=== PATIENT | female | born 1950 | race Caucasian/White ===

== ENCOUNTER 2017-12-22 00:48 | Inpatient (IN) | payer OTHER ==
[~2017-12-22] VITALS: Ht 161.9 cm; Wt 86.3 kg
[2017-12-22 02:06] LABS: BILIRUBIN TOTAL 0.41 mg/dL (0.20-1.00); CALCIUM 9.5 mg/dL (8.5-10.1); CARBON DIOXIDE 27.6 mmol/L (21-32); CREATININE SERUM 1.4 mg/dL (0.6-1.0); TOTAL PROTEIN, SERUM 8.2 g/dL (6.4-8.2)
[2017-12-22 02:07] LABS: ALBUMIN 3.3 g/dL (3.4-5.0)
[2017-12-22 02:10] LABS: POTASSIUM SERUM 2.7 mmol/L (3.5-5.1)
[2017-12-22 02:32] LABS: BASOPHIL % 0.4 % (0-2); PLATELET COUNT 318 x10^3mcL (130-400); RED CELL DISTRIBUTION WIDTH 14.2 % (11.5-14.5)
[2017-12-22] MEDS ORDERED: METOPROLOL TART50 MG PO (05:23)
[2017-12-22] MEDS ORDERED: PLA75 PO (05:23)
[2017-12-22] MEDS ORDERED: ZOCOR20 MG PO (05:23)
[2017-12-22] MEDS ORDERED: HYDRALAZINE HCL25 MG PO (05:24)
[2017-12-22] MEDS ORDERED: LEVOTHYROXIN0.125 M2 PO (05:24)
[2017-12-22] MEDS ORDERED: COZAAR50 M1 PO (05:24)
[2017-12-22] MEDS ORDERED: BAYER ASPIRIN C81 MG PO (05:25)
[2017-12-22 05:26] VITALS: BP 141/69
[2017-12-22 09:27] VITALS: BP 110/62
[2017-12-22 13:54] VITALS: BP 116/67
[2017-12-22 16:35] VITALS: BP 128/68
[2017-12-22 21:22] VITALS: BP 148/65
[2017-12-22 21:51] VITALS: Ht 161.9 cm; Wt 86.3 kg
[2017-12-23 05:55] VITALS: BP 141/80
[2017-12-23 06:32] LABS: BASOPHIL % 0.4 % (0-2); PLATELET COUNT 306 x10^3mcL (130-400); RED CELL DISTRIBUTION WIDTH 14.4 % (11.5-14.5)
[2017-12-23 06:40] LABS: CALCIUM 8.9 mg/dL (8.5-10.1); CARBON DIOXIDE 28.9 mmol/L (21-32); CREATININE SERUM 1.2 mg/dL (0.6-1.0); POTASSIUM SERUM 4.4 mmol/L (3.5-5.1)
[2017-12-23 08:58] VITALS: BP 141/71
[2017-12-23 17:14] VITALS: BP 121/76
[2017-12-23 20:40] VITALS: BP 153/75
[2017-12-24 05:29] VITALS: BP 146/81
[2017-12-24 06:14] LABS: CALCIUM 8.9 mg/dL (8.5-10.1); CARBON DIOXIDE 25.5 mmol/L (21-32); CREATININE SERUM 1.1 mg/dL (0.6-1.0)
[2017-12-24 06:18] LABS: BASOPHIL % 0.3 % (0-2); PLATELET COUNT 355 x10^3mcL (130-400)
[2017-12-24 09:36] VITALS: BP 140/77
[2017-12-24 14:17] VITALS: BP 141/72
[2017-12-24 17:38] VITALS: BP 147/66
[2017-12-24 21:14] VITALS: BP 123/81
[2017-12-25 05:57] VITALS: BP 133/72
[2017-12-25 09:39] VITALS: BP 119/59
[2017-12-25 17:52] VITALS: BP 138/84
[2017-12-25 20:53] VITALS: BP 141/83
[2017-12-26 05:13] VITALS: BP 147/84
[2017-12-26 08:58] VITALS: BP 142/62
[2017-12-26 13:15] VITALS: BP 122/77
[2017-12-26 15:51] VITALS: BP 122/77
[2017-12-26 17:23] VITALS: BP 134/73
== END 2017-12-26 18:05 | disposition home health service (06) | DRG 872 ==
LOC: ED 00:48 → MU 04:16
PROVIDERS: Emergency Medicine; Internal Medicine
DX: A41.9 Sepsis, unspecified organism (principal); K57.32 Diverticulitis of large intestine without perforation or abscess without bleeding; E87.2 Acidosis; E87.6 Hypokalemia; E86.0 Dehydration; K59.00 Constipation, unspecified; T40.2X5A Adverse effect of other opioids, initial encounter; I10 Essential (primary) hypertension; I25.10 Atherosclerotic heart disease of native coronary artery without angina pectoris; K59.03 Drug induced constipation; G43.909 Migraine, unspecified, not intractable, without status migrainosus; I25.2 Old myocardial infarction; Z68.31 Body mass index [BMI] 31.0-31.9, adult; Z95.5 Presence of coronary angioplasty implant and graft; Z86.010 Personal history of colon polyps; Z79.02 Long term (current) use of antithrombotics/antiplatelets; Z79.82 Long term (current) use of aspirin; Y92.009 Unspecified place in unspecified non-institutional (private) residence as the place of occurrence of the external cause
CPT/HCPCS: 83880; J1170; J1956; J2270; J2405; J3490; J7030; Q0092

== ENCOUNTER 2018-02-24 09:14 | Inpatient (IN) | payer OTHER ==
[~2018-02-24] VITALS: Ht 162.6 cm; Wt 86.9 kg
[~2018-02-24 09:14] MED LIST: AMBIEN10 MG PO; ASPIR 8181 MG PO; BAYER ASPIRIN C81 MG PO; COZAAR50 M1 PO; DICYCLOMINE HCL10 MG PO; DIOVAN HCT1 TA1 PO; DULCOLAX STOOL100 M1 PO; HYDRALAZINE HCL25 MG PO; LEVOTHYROXIN0.125 M2 PO; LOPRESSOR50 M1 PO; METOPROLOL TART50 MG PO; NITROSTAT0.4 MG SL; PLA75 PO; RANITIDINE HCL150 M1 PO; ULTRAM50 MG PO; ZOCOR20 MG PO; ZOCOR40 MG PO
[2018-02-24 09:20] VITALS: Ht 162.6 cm; Wt 86.9 kg
[2018-02-24 11:06] LABS: PLATELET COUNT 391 x10^3mcL (130-400); RED CELL DISTRIBUTION WIDTH 13.1 % (11.5-14.5)
[2018-02-24 11:07] LABS: CALCIUM 9.3 mg/dL (8.5-10.1); CREATININE SERUM 1.6 mg/dL (0.6-1.0); POTASSIUM SERUM 3.4 mmol/L (3.5-5.1)
[2018-02-24 11:21] LABS: ALBUMIN 3.5 g/dL (3.4-5.0); BILIRUBIN TOTAL 0.35 mg/dL (0.20-1.00); TOTAL PROTEIN, SERUM 7.8 g/dL (6.4-8.2)
[2018-02-24 11:22] LABS: CK-MB 0.6 ng/mL (0-3.6)
[2018-02-24 12:42] LABS: BAND NEUTROPHIL 2 % (0-10); BASOPHIL 0 % (0-2); MONOCYTE 2 % (0-7); SEGMENTED NEUTROPHILS 94 % (37-75); rbc morphology (normal/abnorm) ABNORMAL (NORMAL)
[2018-02-24 12:44] LABS: PLATELET MORPHOLOGY PLATELETS NORMAL
[2018-02-24 13:29] VITALS: BP 152/77
[2018-02-24 17:29] VITALS: BP 114/69
[2018-02-24 21:09] VITALS: BP 148/64
[2018-02-25 04:50] VITALS: BP 106/68
[2018-02-25 06:05] LABS: BASOPHIL % 0.2 % (0-2); PLATELET COUNT 346 x10^3mcL (130-400); RED CELL DISTRIBUTION WIDTH 13.7 % (11.5-14.5)
[2018-02-25 06:30] LABS: CALCIUM 9.6 mg/dL (8.5-10.1); CARBON DIOXIDE 30.7 mmol/L (21-32); CREATININE SERUM 1.4 mg/dL (0.6-1.0)
[2018-02-25 09:00] VITALS: BP 122/74
[2018-02-25 13:05] VITALS: BP 91/59
[2018-02-25 17:04] VITALS: BP 98/52
[2018-02-25 21:23] VITALS: BP 98/55
[2018-02-26 05:49] VITALS: BP 121/68
[2018-02-26 06:41] LABS: BASOPHIL % 0.3 % (0-2); PLATELET COUNT 306 x10^3mcL (130-400); RED CELL DISTRIBUTION WIDTH 13.9 % (11.5-14.5)
[2018-02-26 06:53] LABS: CALCIUM 9.1 mg/dL (8.5-10.1); CREATININE SERUM 1.8 mg/dL (0.6-1.0); POTASSIUM SERUM 3.7 mmol/L (3.5-5.1)
[2018-02-26 07:02] LABS: CHOLESTEROL/HDL RATIO 2.6
[2018-02-26 09:34] VITALS: BP 134/64
[2018-02-26 17:40] VITALS: BP 121/58
[2018-02-26 20:51] VITALS: BP 113/71
[2018-02-27 05:33] VITALS: BP 140/66
[2018-02-27 06:18] LABS: CARBON DIOXIDE 26.2 mmol/L (21-32); CREATININE SERUM 1.2 mg/dL (0.6-1.0); POTASSIUM SERUM 3.9 mmol/L (3.5-5.1)
[2018-02-27 06:20] LABS: BASOPHIL % 0.4 % (0-2); PLATELET COUNT 288 x10^3mcL (130-400)
[2018-02-27 09:22] VITALS: BP 129/67
[2018-02-27 12:40] VITALS: BP 137/79
[2018-02-27 17:07] VITALS: BP 138/54
[2018-02-27 20:42] VITALS: BP 138/91
[2018-02-28 05:18] VITALS: BP 127/72; BP 145/80
[2018-02-28 09:59] VITALS: BP 114/57
[2018-02-28 12:45] VITALS: BP 137/78
[2018-02-28 16:50] VITALS: BP 143/82
[2018-03-01 05:42] VITALS: BP 139/81
[2018-03-01 05:54] VITALS: BP 139/81
[2018-03-01 08:35] VITALS: BP 154/71
[2018-03-01 10:15] VITALS: BP 154/71
== END 2018-03-01 12:58 | disposition home or self-care (01) | DRG 853 ==
LOC: ED 09:14 → DU 11:18
PROVIDERS: Emergency Medicine; Internal Medicine; Neuromusculoskeletal Medicine, Sports Medicine
PROC: 0HQEXZZ Repair Left Lower Arm Skin, External Approach (ICD-10-PCS; 2018-02-24)
PROC: 0PSJ34Z Reposition Left Radius with Internal Fixation Device, Percutaneous Approach (ICD-10-PCS; principal; 2018-02-26 13:00)
DX: A41.9 Sepsis, unspecified organism (principal); S52.502B Unspecified fracture of the lower end of left radius, initial encounter for open fracture type I or II; L03.114 Cellulitis of left upper limb; N17.9 Acute kidney failure, unspecified; S51.852A Open bite of left forearm, initial encounter; B96.89 Other specified bacterial agents as the cause of diseases classified elsewhere; I12.9 Hypertensive chronic kidney disease with stage 1 through stage 4 chronic kidney disease, or unspecified chronic kidney disease; N18.9 Chronic kidney disease, unspecified; I25.10 Atherosclerotic heart disease of native coronary artery without angina pectoris; E11.22 Type 2 diabetes mellitus with diabetic chronic kidney disease; E03.9 Hypothyroidism, unspecified; Z68.30 Body mass index [BMI] 30.0-30.9, adult; Z95.5 Presence of coronary angioplasty implant and graft; Z79.82 Long term (current) use of aspirin; W54.0XXA Bitten by dog, initial encounter; Y92.009 Unspecified place in unspecified non-institutional (private) residence as the place of occurrence of the external cause
CPT/HCPCS: 76001; 83880; C1713; J0696; J0780; J1170; J2175; J2250; J2270; J2543; J2704; J3010; J3490; J7040; J7120; Q0092

== ENCOUNTER 2018-04-01 18:50 | Inpatient (IN) | payer OTHER ==
[~2018-04-01] VITALS: Ht 162.6 cm; Wt 79.4 kg
[2018-04-01 18:59] VITALS: Ht 162.6 cm; Wt 79.4 kg
[2018-04-01 19:51] LABS: BASOPHIL % 0.4 % (0-2); PLATELET COUNT 350 x10^3mcL (130-400); RED CELL DISTRIBUTION WIDTH 14.7 % (11.5-14.5)
[2018-04-01 19:54] LABS: CALCIUM 9.4 mg/dL (8.5-10.1); CARBON DIOXIDE 27.5 mmol/L (21-32); CREATININE SERUM 1.5 mg/dL (0.6-1.0); POTASSIUM SERUM 3.1 mmol/L (3.5-5.1)
[2018-04-01 19:58] LABS: ALBUMIN 4.1 g/dL (3.4-5.0); BILIRUBIN TOTAL 0.5 mg/dL (0.20-1.00); TOTAL PROTEIN, SERUM 8.1 g/dL (6.4-8.2)
[2018-04-01 23:14] LABS: MAGNESIUM 2.7 mg/dL (1.8-2.4)
[2018-04-01 23:18] LABS: CHOLESTEROL/HDL RATIO 3.1
[2018-04-01 23:45] VITALS: BP 132/78
[2018-04-02 00:33] VITALS: BP 132/78
[2018-04-02 05:43] VITALS: BP 106/63
[2018-04-02 06:26] LABS: BASOPHIL % 0.2 % (0-2); PLATELET COUNT 322 x10^3mcL (130-400)
[2018-04-02 06:42] LABS: CALCIUM 8.8 mg/dL (8.5-10.1); CARBON DIOXIDE 26.9 mmol/L (21-32); CREATININE SERUM 1.4 mg/dL (0.6-1.0); POTASSIUM SERUM 3.3 mmol/L (3.5-5.1)
[2018-04-02 06:51] LABS: T4(THYROXINE) 5.1 ug/dL (4.7-13.3)
[2018-04-02 07:57] LABS: microscopic required? NO
[2018-04-02 08:20] LABS: AMPHETAMINE QUAL UR NONE DETECTED (See below)
[2018-04-02 09:29] LABS: urine erythrocyte NEGATIVE (NEGATIVE)
[2018-04-02 09:36] VITALS: BP 106/54
[2018-04-02 11:55] VITALS: BP 106/54
[2018-04-03 15:24] LABS: RAPID PLASMA REAGIN Non Reactive (Non Reactive); RHEUMATOID ARTHRITIS FACTOR 10.2 IU/mL (0.0-13.9)
== END 2018-04-02 13:05 | disposition home or self-care (01) | DRG 312 ==
LOC: ED 18:50 → DU 22:41
PROVIDERS: Emergency Medicine; Internal Medicine
DX: R55 Syncope and collapse (principal); E87.6 Hypokalemia; E86.0 Dehydration; D72.829 Elevated white blood cell count, unspecified; I10 Essential (primary) hypertension; I25.10 Atherosclerotic heart disease of native coronary artery without angina pectoris; J44.9 Chronic obstructive pulmonary disease, unspecified; I25.2 Old myocardial infarction; Z68.29 Body mass index [BMI] 29.0-29.9, adult; Z79.82 Long term (current) use of aspirin; Z79.891 Long term (current) use of opiate analgesic; Z79.1 Long term (current) use of non-steroidal anti-inflammatories (NSAID)
CPT/HCPCS: 86431; J2270; J3490; J7030; J7040; J7620; Q0092; Q9967

== ENCOUNTER 2018-04-02 22:36 | Observation (INO) | payer OTHER ==
[~2018-04-02] VITALS: Ht 162.6 cm; Wt 76.2 kg
[2018-04-02 22:40] VITALS: Ht 162.6 cm; Wt 76.2 kg
[2018-04-02 23:15] LABS: BASOPHIL % 0.4 % (0-2); PLATELET COUNT 294 x10^3mcL (130-400); RED CELL DISTRIBUTION WIDTH 14.5 % (11.5-14.5)
[2018-04-02 23:33] LABS: ALBUMIN 3.4 g/dL (3.4-5.0); BILIRUBIN TOTAL 0.3 mg/dL (0.20-1.00); CALCIUM 8.6 mg/dL (8.5-10.1); CARBON DIOXIDE 26.2 mmol/L (21-32); CREATININE SERUM 1.5 mg/dL (0.6-1.0); POTASSIUM SERUM 3.4 mmol/L (3.5-5.1)
[2018-04-03 03:13] VITALS: BP 153/65
[2018-04-03 04:14] LABS: CHOLESTEROL/HDL RATIO 2.9; MAGNESIUM 2.2 mg/dL (1.8-2.4)
[2018-04-03 05:13] VITALS: BP 148/62
[2018-04-03 05:42] LABS: microscopic required? YES; urine erythrocyte NEGATIVE (NEGATIVE)
[2018-04-03 08:22] VITALS: BP 132/69
[2018-04-03 11:25] VITALS: BP 102/50
[2018-04-03 17:31] VITALS: BP 101/64
[2018-04-03 21:36] VITALS: BP 122/70
[2018-04-04 05:42] VITALS: BP 108/70
[2018-04-04 06:21] LABS: BASOPHIL % 0.5 % (0-2); PLATELET COUNT 271 x10^3mcL (130-400); RED CELL DISTRIBUTION WIDTH 14.5 % (11.5-14.5)
[2018-04-04 06:29] LABS: CALCIUM 8.6 mg/dL (8.5-10.1); CARBON DIOXIDE 22.2 mmol/L (21-32); CREATININE SERUM 1.1 mg/dL (0.6-1.0); POTASSIUM SERUM 3.8 mmol/L (3.5-5.1)
[2018-04-04 10:31] VITALS: BP 113/57
[2018-04-04 15:04] VITALS: BP 139/68
[2018-04-04 17:18] VITALS: BP 116/69
[2018-04-04 21:49] VITALS: BP 112/49
[2018-04-04 21:51] VITALS: BP 115/73
[2018-04-05 05:20] VITALS: BP 118/80
[2018-04-05 08:00] VITALS: BP 103/71
[2018-04-05 09:25] VITALS: BP 114/59
[2018-04-05 13:11] VITALS: BP 114/59
[2018-04-05 13:42] VITALS: BP 128/77
== END 2018-04-05 15:26 | disposition home or self-care (01) | DRG 303 ==
LOC: ED 22:36 → DU 04-03 02:30
PROVIDERS: Emergency Medicine; Internal Medicine
DX: I25.119 Atherosclerotic heart disease of native coronary artery with unspecified angina pectoris (principal); N39.0 Urinary tract infection, site not specified; I13.10 Hypertensive heart and chronic kidney disease without heart failure, with stage 1 through stage 4 chronic kidney disease, or unspecified chronic kidney disease; N18.3 Chronic kidney disease, stage 3 (moderate); J44.9 Chronic obstructive pulmonary disease, unspecified; Z68.30 Body mass index [BMI] 30.0-30.9, adult; Z95.5 Presence of coronary angioplasty implant and graft; Z79.82 Long term (current) use of aspirin
CPT/HCPCS: 83880; A9500; G0378; J2270; J2785; J3490; Q0092

== ENCOUNTER 2018-05-11 14:00 | Inpatient (IN) | payer OTHER ==
[~2018-05-11] VITALS: Ht 162.6 cm; Wt 81.3 kg
[2018-05-11 14:05] VITALS: Ht 162.6 cm; Wt 81.3 kg
[2018-05-11 15:33] LABS: BASOPHIL % 0.4 % (0-2); PLATELET COUNT 314 x10^3mcL (130-400); RED CELL DISTRIBUTION WIDTH 14.6 % (11.5-14.5)
[2018-05-11 15:59] LABS: CALCIUM 9.3 mg/dL (8.5-10.1); CARBON DIOXIDE 26.5 mmol/L (21-32); CREATININE SERUM 1.4 mg/dL (0.6-1.0); POTASSIUM SERUM 3.4 mmol/L (3.5-5.1)
[2018-05-11 16:06] LABS: ALBUMIN 4.1 g/dL (3.4-5.0); BILIRUBIN TOTAL 0.49 mg/dL (0.20-1.00); TOTAL PROTEIN, SERUM 7.9 g/dL (6.4-8.2)
[2018-05-11 16:13] LABS: T3 TOTAL 1.01 ng/mL
[2018-05-11 16:15] LABS: CHOLESTEROL/HDL RATIO 2.9
[2018-05-11 16:27] LABS: FREE THYROXINE INDEX 3.2 ug/dL (1.4-4.5); T4(THYROXINE) 8.6 ug/dL (4.7-13.3)
[2018-05-11 20:24] VITALS: BP 188/95
[2018-05-11] MEDS ORDERED: ASPIR 8181 MG PO (20:42)
[2018-05-11] MEDS ORDERED: PLAVIX75 M1 PO (20:42)
[2018-05-11] MEDS ORDERED: DICYCLOMINE HCL10 MG PO (20:42)
[2018-05-11] MEDS ORDERED: HYDRALAZINE HCL25 MG PO (20:43)
[2018-05-11] MEDS ORDERED: COLACE100 MG PO (20:43)
[2018-05-11] MEDS ORDERED: LEVOTHYROXIN0.125 M2 PO (20:43)
[2018-05-11] MEDS ORDERED: METOPROLOL SUCC50 M2 PO (20:44)
[2018-05-11] MEDS ORDERED: LOSARTAN POTASS50 M1 PO (20:44)
[2018-05-11] MEDS ORDERED: RANITIDINE HCL150 M1 PO (20:45)
[2018-05-11] MEDS ORDERED: ZOCOR20 MG PO (20:45)
[2018-05-11] MEDS ORDERED: DIOVAN HCT1 TA1 PO (20:45)
[2018-05-11 21:01] LABS: UA SPECIFIC GRAVITY >=1.030 (1.005-1.035); microscopic required? YES; urine erythrocyte 2+ (NEGATIVE)
[2018-05-12] VITALS (8 sets, daily range): BP systolic 118–170; BP diastolic 69–102
[2018-05-12 06:04] LABS: BASOPHIL % 0.4 % (0-2); PLATELET COUNT 271 x10^3mcL (130-400)
[2018-05-12 06:45] LABS: RED CELL DISTRIBUTION WIDTH 14.8 % (11.5-14.5)
[2018-05-12 06:46] LABS: CALCIUM 8.6 mg/dL (8.5-10.1); CARBON DIOXIDE 25.6 mmol/L (21-32); CREATININE SERUM 1.4 mg/dL (0.6-1.0); POTASSIUM SERUM 3.4 mmol/L (3.5-5.1)
[2018-05-13 06:16] VITALS: BP 197/84
[2018-05-13 07:02] VITALS: BP 159/73
[2018-05-13 08:58] VITALS: BP 157/81
[2018-05-13 10:00] VITALS: BP 157/81
== END 2018-05-13 14:25 | disposition home health service (06) | DRG 383 ==
LOC: ED 14:00 → DU 19:37
PROVIDERS: Internal Medicine; Internal Medicine Gastroenterology; Specialist
PROC: 0DB68ZX Excision of Stomach, Via Natural or Artificial Opening Endoscopic, Diagnostic (ICD-10-PCS; principal; 2018-05-12 10:30)
DX: K25.9 Gastric ulcer, unspecified as acute or chronic, without hemorrhage or perforation (principal); N17.0 Acute kidney failure with tubular necrosis; F11.20 Opioid dependence, uncomplicated; K26.7 Chronic duodenal ulcer without hemorrhage or perforation; N20.0 Calculus of kidney; E87.6 Hypokalemia; I11.9 Hypertensive heart disease without heart failure; I25.10 Atherosclerotic heart disease of native coronary artery without angina pectoris; F31.9 Bipolar disorder, unspecified; F41.9 Anxiety disorder, unspecified; Z88.5 Allergy status to narcotic agent; Z87.01 Personal history of pneumonia (recurrent); Z95.5 Presence of coronary angioplasty implant and graft; Z79.82 Long term (current) use of aspirin; Z79.02 Long term (current) use of antithrombotics/antiplatelets; G89.29 Other chronic pain; I25.2 Old myocardial infarction; J45.909 Unspecified asthma, uncomplicated; Z68.27 Body mass index [BMI] 27.0-27.9, adult
CPT/HCPCS: 43235; 72072; 78226; 83880; 84439; A9537; C9113; J1200; J1610; J2250; J2270; J2310; J2405; J3010; J3490; J7030; Q0092

== ENCOUNTER 2018-11-21 07:49 | Inpatient (IN) | payer OTHER ==
[~2018-11-21] VITALS: Ht 162.6 cm; Wt 80.9 kg
[~2018-11-21 07:49] MED LIST changes: +COLACE100 MG PO; +LOSARTAN POTASS50 M1 PO; +METOPROLOL SUCC50 M2 PO; +PLAVIX75 M1 PO
[2018-11-21 07:50] VITALS: Ht 162.6 cm; Wt 80.9 kg
--- NOTE | 2018-11-21 08:11 | NUR ---
PT AWAKE AND ALERT. PT C/O SOB AND LLQ PAIN X4 DAYS. PT APPEARS TO BE IN SOME RESPIRATORY DISTRESS WITH DEEP SYMMETRICAL DEEP BREATHS. PT ON FULL CM. VITALS SHOW STA ON THE CM. SP02 WNL ON RA. PT REPORTS HX OF CARDIAC STENTS AND HTN. MSE COMPLETED BY DR MAURICE. CALL LIGHT WITHIN REACH. CTM.
[2018-11-21 08:29] LABS: BASOPHIL % 0.3 % (0-2); PLATELET COUNT 366 x10^3mcL (130-400); RED CELL DISTRIBUTION WIDTH 13.6 % (11.5-14.5)
[2018-11-21 08:44] LABS: CALCIUM 10.5 mg/dL (8.5-10.1); CARBON DIOXIDE 22.8 mmol/L (21-32); CHLORIDE SERUM 101 mmol/L (98-107); CREATININE SERUM 1.6 mg/dL (0.6-1.0); GFR1 34 mL/min; GLUCOSE SERUM 124 mg/dL (74-106); POTASSIUM SERUM 3.4 mmol/L (3.5-5.1); SODIUM SERUM 143 mmol/L (136-145)
[2018-11-21 08:48] LABS: ALKALINE PHOSPHATASE 84 U/L (46-116); ALT/SGPT 19 U/L (14-59); AST/SGOT 10 U/L (15-37); BILIRUBIN TOTAL 0.46 mg/dL (0.20-1.00); LIPASE 56 IU/L (73-393); TOTAL PROTEIN, SERUM 7.9 g/dL (6.4-8.2)
--- NOTE | 2018-11-21 08:48 | NUR ---
PT MEDICATED AND TAKEN TO XRAY VIA WHEELCHAIR
--- NOTE | 2018-11-21 09:26 | NUR ---
PT REPORTS HER PAIN IS STILL PRESENT AND ONLY A "LITTLE BIT" RELIEVED
--- NOTE | 2018-11-21 09:30 | NUR ---
spoke to pt's daughter Lea who is requesting pt's diagnosis and what is being done by hospital, told pt's daughter that i am unable to provided pt medical information over the phone but i would let pt know she called and point her to the nearest telephone if she wants to call daughter back.
[2018-11-21 09:52] LABS: UA SPECIFIC GRAVITY 1.015 (1.005-1.035); microscopic required? YES; urine erythrocyte NEGATIVE (NEGATIVE)
--- NOTE | 2018-11-21 09:59 | NUR ---
PURPLE SEPSIS FORM INITIATED. ANTIBIOTICS INITIATED.
--- NOTE | 2018-11-21 10:00 | NUR ---
SPOKE TO PT'S NIECE FROM ADMITTING [facility], WITH PERMISSION FROM PT PROVIDED [facility]RIANA WITH AN UPDATE OF PT'S CONDITION IN PERSON. ADRIANA REPORTS SHE WILL CALL PT'S DAUGHTER SHABBIR TO UPDATE HER.
--- NOTE | 2018-11-21 10:12 | NUR ---
SPOKE TO SUKHDEEP FROM [facility] ABOUT PT STATUS, LABS AND SCANS. CONTACT INFO FOLLOWS: FAX- [phone] PHONE- [phone]
[2018-11-21 12:20] VITALS: BP 187/94
--- NOTE | 2018-11-21 13:00 | NUR ---
SPOKE WITH DR. DELGADO REGARDING ELEVATED BLOOD PRESSURE. RECEIVED ORDERS TO CONTINUE HOME MEDICATION. DR. DLEGADO INFORMED OF POTASSIUM OF 3.4, PER DR. DELGADO WILL REPLACE WHEN HE SEES PT TOMORROW.
--- NOTE | 2018-11-21 14:48 | NUR ---
PT IN BED RESTING. NO ACUTE RESP DISTRESS NOTED ON RA. PT C/O PAIN 10/10 TO LOWER ABDOMEN. MEDICATED PER EMAR. GIVEN PO MEDS. TOLERATED WELL. IV TO RH FLUSHED WELL. NO REDNESS OR SWELLING NOTED. IV ANTIBIOTICS INFUSING ORDERED. WILL CONTINUE TO MONITOR. CALL LIGHT IN REACH. BED IN LOWEST POSITION.
--- NOTE | 2018-11-21 15:53 | NUR ---
PT IN BED RESTING. NO AUCTE RESP DISTRESS NOTED ON RA. PT C/O ABDOMINAL PAIN TO LOWER QUADRANT. PT STATES OTHER PAIN MEDICATION DID NOT HELP. MEDICATED PER EMAR. IV SALINE LOCKED TO . NO REDNESS OR SWELLING NOTED. WILL CONTINUE TO MONITOR. CALL LIGHT IN REACH. BED IN LOWEST POSTIION.
[2018-11-21 16:25] VITALS: BP 160/86
--- NOTE | 2018-11-21 18:23 | NUR ---
PT SITTING UP IN BED. NO ACUTE RESP DISTRESS NOTED ON RA. PT DENIES SOB. TELE#6. IV PATENT AND INFUSING TO RW. NO REDNESS OR SWELLING NOTED. PT STATES PAIN HAS REMAINED THE SAME / SINCE RECEIVING PAIN MEDICATION. PT STATES SHE ATE SOME OF HER DINNER AND STARTED TO INCREASE. WILL ENDORSE TO COOK DINNER RN. CALL LIGHT IN REACH. BED IN LOWEST POSITION.
--- NOTE | 2018-11-21 19:32 | NUR ---
RECIEVED PT FROM DAY SHIFT RN. PT AAOX4 DENIES HEADACHE OR DIZZINESS. TELE #6 ST HR 101, DENIES CHEST PAIN OR PRESSURE. LUNG SOUNDS CTA ON RA WITH NO SOB NOTED. ABD SOFT AND ROUND, ACTIVE BOWEL SOUNDS, DENIES ABD PAIN/N/V. IV TO RIGHT WRIST PATENT, INFUSING WELL NO SIGNS OF INFILTRATION. ECCHYMOSIS NOTED TO ALL EXTREMITIES. PT AMBULATORY WITH BRP. CALL BUTTON WITHIN REACH. WILL CONTINUE TO MONITOR.
--- NOTE | 2018-11-21 20:05 | NUR ---
PT REQUESTING FOR SLEEPING MEDICATION FOR TONIGHT, RECIEVED A CALL FROM DR VILLAGOMEZ FOR NEW ORDER AND CARRIED OUT.
[2018-11-21 20:29] VITALS: BP 128/77
--- NOTE | 2018-11-21 23:02 | NUR ---
PT REPORTED HAVING ABD PAIN, 7/10. MEDICATED PER EMAR. CALL BUTTON WITHIN REACH. WILL MONITOR.
[2018-11-22] VITALS (7 sets, daily range): BP systolic 119–174; BP diastolic 62–93
--- NOTE | 2018-11-22 | NUR ---
SPOKE TO DR VILLAGOMEZ AT THIS TIME AND MADE AWARE OT K 3.4, PER DR VILLAGOMEZ WILL WAIT FOR AM LABS.
--- NOTE | 2018-11-22 01:42 | NUR ---
PT REPORTED HAVING ABD PAIN 8/10, MEDICATED PER EMAR. CALL BUTTON WITHIN REACH. SAFETY PRECAUTIONS IN PLACE. WILL CONTINUE TO MONITOR.
--- NOTE | 2018-11-22 04:48 | NUR ---
PT REPORTED ABD PAIN 6/10, MEDICATED PER EMAR. CALL BUTTON WITHIN REACH. WILL MONITOR.
--- NOTE | 2018-11-22 05:18 | NUR ---
PT SLEPT ON AND OFF THROUGHOUT THE NIGHT WITH NO DISTRESS. BREATHING EVEN AND UNLABORED ON RA. IV PATENT, INFUSING WELL, NO SIGNS OF INFILTRATION NOTED. PT RPEORTED ABD PAIN THROUGHOUT THE SHIFT, MEDICATED PER EMAR WITH SOME RELIEF. PT AMBULATORY WITH BRP. NO SIGNS OF DISTRESS NOTED. CALL BUTTON WITHIN REACH. WILL CONTINUE TO MONITOR AND ENDORSE CARE TO DAY SHIFT RN.
--- NOTE | 2018-11-22 06:33 | NUR ---
PT REPORTED HAVING ABD PAIN, MEDICATED PER EMAR. WILL CONTINUE TO MONITOR.
[2018-11-22 06:46] LABS: CALCIUM 9.2 mg/dL (8.5-10.1); CARBON DIOXIDE 24.1 mmol/L (21-32); CREATININE SERUM 1.3 mg/dL (0.6-1.0); POTASSIUM SERUM 3.6 mmol/L (3.5-5.1)
[2018-11-22 07:08] LABS: BASOPHIL % 0.4 % (0-2); PLATELET COUNT 284 x10^3mcL (130-400); RED CELL DISTRIBUTION WIDTH 14.2 % (11.5-14.5)
--- NOTE | 2018-11-22 07:30 | NUR ---
RECEIVED PT FROM LOSS MITIGATION SPECIALIST RN. Raul/TEVIN. TELE#6. DENIES CHEST PAIN/PRESSURE. NO ACUTE RESP DISTRESS NOTED ON RA. PT C/O ABDOMINAL PAIN TO LOWER QUADRANT. PT STATES MORPHINE DID NOT HELP MUCH. IV PATENT AND INFUSING TO RW. NO REDNESS OR SWELLING NOTED. PT DENIES ANY N/V. WILL CONTINUE TO MONITOR. CALL LIGHT IN REACH. BED IN LOWEST POSITION.
--- NOTE | 2018-11-22 07:36 | NUR ---
PT AWAKE, NO SIGNS OF DISTRESS NOTED. ENDORSED CARE TO DAY SHIFT RN, ALL QUESTIONS ADDRESSED.
--- NOTE | 2018-11-22 08:59 | NUR ---
PT IN BED RESTING. NO ACUTE RESP DISTRESS NOTED ON RA. PT BP WAS 174/75. GIVEN PO MEDS. TOLERATED WELL. WILL REASSESS BP. IV PATENT AND INFUSING TO RH. NO REDNESS OR SWELLING NOTED. PT C/O ABDOMINAL PAIN TO LOWER QUAD 10/10. WILL MEDICATE PER EMAR. WILL CONTINUE TO MONITOR. CALL LIGHT IN REACH. BED IN LOWEST POSITION.
--- NOTE | 2018-11-22 10:32 | NUR ---
PT IN BED RESTING. NO ACUTE RESP DISTRESS NOTED RA. PT C/O PAIN 10/10 TO LOWER ABDOMEN. MEDICATED PER EMAR. IV TO RW FLUSHED WELL. NO REDNESS OR SWELLING NOTED. PT ASKING TO HAVE NORCO ONE HOUR AFTER RECEIVING PAIN MEDICATION. IV ANTIBIOTICS INFUSING ORDERED. PT BLOOD PRESSURE WAS 119/67. WILL CONTINUE TO MONITOR. CALL LIGHT IN REACH. BED IN LOWEST POSITION.
--- NOTE | 2018-11-22 11:57 | NUR ---
Initial Nutrition Assessment: Charlotte Sargent 222T-A Dx: Diverticulitis and Sepsis PMHx: HTN, PNA, Colon problems, 4 cardiac stents per ED report PSHx: cardiac stent placement Labs: (11/22) BUN:19H, Cr:1.3H (11/21) AST:10L, Lipase:56L, Meds: Ambien, Cozaar, Flagyl, Levaquin, Lovenox, Morphine, Manati, Plavix, Synthroid, Tylenol and Zofran Diet: Clear liquid diet PO Intake: (11/22) B:10% Ht: 64in, 5'4" Wt: 178#, 80.91kg BMI: 30.6kg/m2 (obese) Bed scale: 79kg IBW:120#, 54kg %IBW: 148% UBW: 176# per pt Age: 68 y/o female Food Allergies: Anderson (throat swells up) Skin: ecchymosis throughout all extremities Z[place]: 21 Edema: None GI: active bowel sounds Last BM:11/20 Nursing Trigger: Admitted w/ potential risk dx and poor PO intake>3 days Per ED report, pt with c/o SIB for the past 4 dats with abdominal pain. Per progress note 11/22, CT scan finsing was unremarkable (suspicious for enteritis vs. diverticulitis). Plan is clear liquid diet and advance as tolerated, antibiotics (Levquin and Flagyl), IV hydration, monitor renal function and AM labs. During visit, pt just came back from the bathroom. Pt reports to being hungry and not liking her clear liquid diet and wanting her diet to be advanced. Offered ONS Ensure clear, but pt states she's already receiving it on her tray and doesn't like the taste. Pt with no c/o N/V/D/C. Problem with: N/V/D/C: No Problems with: Chewing/ Swallowing: No Current appetite: Fair Recent wt change:+2# %wt change:-1.1% Vitamin/Supplement use:No Special diet at home: Regular. Per pt, "whatever I feel like" Physical activity: Walking her dogs everyday Nutrition education given: No, pt had diverticulitis 3 or 4 years ago and is familar with diet. Doctor already gave patient handout of what to eat and avoid. Food-drug interactions? Synthroid: avoid soy products, walnuts. Education given?yes Estimated Nutritional Needs Based on ideal body weight 54kg Energy: 1350-1620kcal/d (25-30kcal/kg for maintenance) Protein: 54-65g/d (1-1.2g/kg for geriatric maintenance) Fluid: 1300-1600ml/d (1 ml/kcal) or per doctor Nutrition Diagnosis 1. Inadequate energy intake related to insufficient kcals per diet order as evidenced by pt on clear liquid diet. Intervention 1. Recommend continue Ensure Clear TID (provides 720kcal and 24g protein) and advance diet as tolerated. Monitor/Evaluate Goal: PO intake at least 75% of estimated needs and diet advancement Monitor: diet advancement, PO intake, Labs, GI function F/U in 2-3 days as high risk:11/24-
--- NOTE | 2018-11-22 11:58 | NUR ---
1. Recommend continue Ensure Clear TID (provides 720kcal and 24g protein) and advance diet as tolerated.
--- NOTE | 2018-11-22 12:25 | NUR ---
DR. LYNCH AT BEDSIDE PER DR. LYNCH WOULD LIKE TO KEEP PT ONE MORE DAY DEPENDING ON HOW PT IS FEELING TOMORROW, INCREASED DIET TO MECHANICAL SOFT, RESUMED IV FLUIDS.
--- NOTE | 2018-11-22 12:34 | NUR ---
SPOKE WITH THEODORE FROM [facility] GIVEN UPDATED ON PT.
--- NOTE | 2018-11-22 14:17 | NUR ---
PT IN BED RESTING. NO ACUTE RESP DISTRESS NOTED ON RA. PT STATES PAIN IS INCREASING 10/10 TO LOWER ABDOMEN. MEDICATED PER EMAR. IV ANTIBIOTICS INFUSING ORDERED. NO REDNESS OR SWELLING NOTED. BLOOD PRESSURE RECHECKED WAS 134/79. WILL CONTINUE TO MONITOR. CALL LIGHT IN REACH. BED IN LOWEST POSITION.
--- NOTE | 2018-11-22 16:35 | NUR ---
PT IN BED RESTING. NO ACUTE RESP DISTRESS NOTED ON RA. PT C/O ABDOMINAL PAIN TO LOWER QUAD 10/10. MEDICATED PER EMAR. IV PATENT AND INFUSING TO RW. NO REDNESS OR SWELLING NOTED. WILL CONTINUE TO MONITOR. CALL LIGHT IN REACH. BED IN LOWEST POSITION.
--- NOTE | 2018-11-22 18:41 | NUR ---
PT IN BED RESTING. NO ACUTE RESP DISTRESS NOTED ON RA. TELE#6. PT STATES PAIN HAS IMPROVED A LITTLE SINCE RECEIVING MORPHINE. IV PATENT AND INFUSING. NO REDNESS OR SWELLING NOTED. WILL ENDORSE TO KILN REPAIRER RN. CALL LIGHT IN REACH. BED IN LOWEST POSITION.
--- NOTE | 2018-11-22 19:36 | NUR ---
RECIEVED PT FROM DAY SHIFT RN. PT AAOX4 DENIES HEADACHE OR DIZZINESS. TELE #6 SR W/ DEPRESSED T WAVE HR 67, DENIES CHEST PAIN OR PRESSURE. LUNG SOUNDS CTA ON RA WITH NO SOB NOTED. ABD SOFT AND ROUND, ACTIVE BOWEL SOUNDS, DENIES ABD PAIN/N/V. IV TO RIGHT WRIST PATENT, INFUSING WELL NO SIGNS OF INFILTRATION. ECCHYMOSIS NOTED TO ALL EXTREMITIES. PT AMBULATORY WITH BRP. CALL BUTTON WITHIN REACH. WILL CONTINUE TO MONITOR.
--- NOTE | 2018-11-22 21:29 | NUR ---
PT REQUESTING SLEEPING MEDICATION AT THIS TIME, MEDICATED PER EMAR. CALL BUTTON WITHIN REACH. SAFETY PRECAUTIONS IN PLACE. WILL CONTINUE TO MONITOR.
--- NOTE | 2018-11-22 22:43 | NUR ---
PT REPORTED HAVING ABD PAIN, MEDICATED PER EMAR. CALL BUTTON WITHIN REACH. WILL MONITOR.
--- NOTE | 2018-11-22 23:52 | NUR ---
PT RESTING, BREATHING EVEN AND UNLABORED WITH NO SIGNS OF DISTRESS NOTED. IV PATENT AND INFUSING WELL. NO SIGNS OF ACUTE DISTRESS NOTED. CALL BUTTON WITHIN REACH. WILL CONTINUE TO MONITOR.
--- NOTE | 2018-11-23 02:39 | NUR ---
PT RESTING, BREATHING EVEN AND UNLABORED WITH NO SIGNS OF DISTRESS NOTED. CALL BUTTON WITHIN REACH. WILL CONTINUE TO MONITOR.
--- NOTE | 2018-11-23 04:40 | NUR ---
PT REPORTED HAVING ABD PAIN, MEDICATED PER EMAR. CALL BUTTON WITHIN REACH. SAFETY PRECAUTIONS IN PLACE. WILL CONTINUE TO MONITOR.
--- NOTE | 2018-11-23 05:19 | NUR ---
PT SLEPT MOST OF THE NIGHT WITH NO SIGNS OF DISTRESS. BREATHING EVEN AND UNLABORED WITH NO SOB NOTED. IV PATENT, INFUSING WELL WITH NO SIGNS OF INFILTRATION NOTED. PT REPORTED ABD PAIN, MEDICATED PER EMAR WITH SOME RELIEF. CALL BUTTON WITHIN REACH. SAFETY PRECAUTIONS IN PLACE. WILL CONTINUE TO MONITOR AND ENDORSE CARE TO DAY SHIFT RN.
--- NOTE | 2018-11-23 05:45 | NUR ---
PT BP THIS AM IS 163/84, CATAPRES GIVEN PER EMAR. WILL RECHECK BP.
[2018-11-23 05:54] VITALS: BP 163/84
[2018-11-23 06:55] LABS: CARBON DIOXIDE 23.8 mmol/L (21-32); CREATININE SERUM 1.1 mg/dL (0.6-1.0); POTASSIUM SERUM 3.7 mmol/L (3.5-5.1)
[2018-11-23 06:58] LABS: BASOPHIL % 0.3 % (0-2); PLATELET COUNT 253 x10^3mcL (130-400); RED CELL DISTRIBUTION WIDTH 14.2 % (11.5-14.5)
--- NOTE | 2018-11-23 07:20 | NUR ---
RECEIVED PT FROM SLOT MACHINE MECHANIC RN. Raul/TEVIN. TELE#6. DENIES CHEST PAIN/PRESSURE. RESPIRATIONS EQUAL AND UNLABORED ON RA. DENIES SOB. PT C/O ABDOMINAL PAIN TO LOWER QUADRANT 12/17. PT STATES HER PAIN IS BETTER BUT SHE STILL IS IN A LOT OF PAIN. PT STATES SHE FEELS CONSTIPATED. PT EDUCATED PAIN MEDICATION CAN CAUSE CONSTIPATION. ENCOURAGED PT TO AMBULATE. IV PATENT AND INFUSING TO RW. NO REDNESS OR SWELLING NOTED. WILL CONTINUE TO MONITOR. CALL LIGHT IN REACH. BED IN LOWEST POSITION.
--- NOTE | 2018-11-23 07:23 | NUR ---
PT RESTING, BREATHING EVEN AND UNLABORED. NO SIGNS OF DISTRESS NOTED. ENDORSED CARE TO DAY SHIFT RN, ALL QUESTIONS ADDRESSED.
[2018-11-23 08:06] VITALS: BP 151/53
--- NOTE | 2018-11-23 08:51 | NUR ---
PT IN BED RESTING. NO ACUTE RESP DISTRESS NOTED ON RA. GIVEN PO MEDS. TOLERATED WELL. PT C/O ABDOMINAL PAIN TO LOWER QUADRANT. PT STATES I WOULD LIKE TO HAVE PAIN MEDICATION AFTER I EAT BREAKFAST. PT STATES MORPHINE HELPS TO CONTROL HER PAIN. IV PATENT AND INFUSING TO RW. NO REDNESS OR SWELLING NOTED. WILL CONTINUE TO MONITOR. CALL LIGHT IN REACH. BED IN LOWEST POSITION.
--- NOTE | 2018-11-23 09:17 | NUR ---
SPOKE WITH SUPERVISOR BROODER FARM AT [facility] GIVEN UPDATED ON PT CONDITION AND DISCHARGE PLANNING.
--- NOTE | 2018-11-23 09:33 | NUR ---
SPOKE WITH MARICHUY IN PHARMACY. INFORMED HER PT DOES NOT HAVE VALSARTAN/HCT AND NO ONE TO BRING IT IN. PER MARICHUY SHE WILL LOOK UP A SUBSTITUTION FOR MEDICATION AND CALL DR. LYNCH.
--- NOTE | 2018-11-23 10:06 | NUR ---
PT IN BED RESTING. PT C/O LOWER QUADRANT ABDOMINAL PAIN 03/19. MEDICATED PER EMAR. IV ANTIBIOTICS INFUSING ORDERED. IV FLUSHED WELL, NO REDNESS OR SWELLING NOTED. WILL CONTINUE TO MONITOR. CALL LIGHT IN REACH. BED IN LOWEST POSITION.
[2018-11-23 12:41] VITALS: BP 140/64
--- NOTE | 2018-11-23 13:12 | NUR ---
PT IN BED RESTING. NO ACUTE RESP DISTRESS NOTED ON RA. PT STILL C/O ABDOMINAL PAIN. PT STATES SHE FEELS CONSTANT CRAMPING TO LOWER ABDOMEN. MEDICATED PER EMAR. PT STATES SHE ALSO FEELS THE URGE TO HAVE BM BUT CANNOT. WILL CONTINUE TO MONITOR. CALL LIGHT IN REACH. BED IN LOWEST POSITION.
[2018-11-23] MEDS ORDERED: CIPRO500 MG PO (14:33)
[2018-11-23] MEDS ORDERED: FLAGYL500 MG PO (14:33)
[2018-11-23] MEDS ORDERED: LACTULOSE10 GM/152 PO (14:34)
--- NOTE | 2018-11-23 14:42 | NUR ---
SPOKE WITH DR. WONG. DR. LYNCH INFORMED REGARDING PT C/O CONSTIPATION AND ABDOMINAL PAIN. PER DR. WONG WILL KEEP PT ONE MORE NIGHT, DR. WONG ORDER DULCOLAX FOR CONSTIPATION, D/C'D IV FLUIDS. DR. WONG STATES PT HOME MEDICATION VALSARTAN/HCTZ IS HELD DUE TO PT KIDNEY FUNCTION. SPOKE WITH MARICHUY IN PHARMACY AND UPDATED HER.
[2018-11-23 14:49] VITALS: BP 140/64
--- NOTE | 2018-11-23 15:18 | NUR ---
PT IN BED RESTING. PT C/O ABDOMINAL PAIN 10/10 TO LOWER QUADRANT. MEDICATED PER EMAR. PT GIVEN RECTAL SUPPOSITORY. WILL CONTINUE TO MONITOR. CALL LIGHT IN REACH. BED IN LOWEST POSITION.
--- NOTE | 2018-11-23 15:42 | NUR ---
SPOKE WITH CAMMY INSTRUCTOR KNITTING FROM [facility]. UPDATED CAMMY THAT D/C PLANNING IS FOR TOMORROW MORNING.
[2018-11-23 17:01] VITALS: BP 139/87
--- NOTE | 2018-11-23 18:49 | NUR ---
PT IN BED RESTING. NO ACUTE RESP DISTRESS NOTED ON RA. PT STATES PAIN HAS IMPROVED A LITTLE TO LOWER QUARDRANT. IV SALINE LOCKED TO RW. NO REDNESS OR SWELLING NOTED. TELE#6. PT STATES SHE WAS ABLE TO HAVE A SMALL BM EARLIER TODAY. WILL CONTINUE TO MONITOR. CALL LIGHT IN REACH. BED IN LOWEST POSITION.
--- NOTE | 2018-11-23 19:29 | NUR ---
RECIEVED PT FROM DAY SHIFT RN. PT AAOX4 DENIES HEADACHE OR DIZZINESS. TELE #6 SR W/ DEPRESSED T WAVE. DENIES CHEST PAIN OR PRESSURE. LUNG SOUNDS CTA ON RA WITH NO SOB NOTED. ABD SOFT AND ROUND, ACTIVE BOWEL SOUNDS, DENIES ABD PAIN/N/V. IV TO RIGHT WRIST PATENT, SL. ECCHYMOSIS NOTED TO ALL EXTREMITIES. PT AMBULATORY WITH BRP. CALL BUTTON WITHIN REACH. WILL CONTINUE TO MONITOR.
--- NOTE | 2018-11-23 19:50 | NUR ---
SPOKE TO DR GREGORY AND MADE HIM AWARE OF PT POSSIBLE D/C HOME TOMORROW AND TRYING TO WEAN OFF MORPHINE. PER DR GREGORY TO INCREASE NORCO TO 10/325, AND AVOID GIVING MORPHINE. NEW ORDER CARRIED OUT.
--- NOTE | 2018-11-23 21:35 | NUR ---
PT REPORTED ABD PAIN, REQUESTING PAIN MEDICATION. MEDICATED PER EMAR. WILL MONITOR.
[2018-11-23 22:43] VITALS: BP 155/75
--- NOTE | 2018-11-23 22:52 | NUR ---
PT REQUESTING SLEEPING MEDICATION, MEDICATED PER EMAR. CALL BUTTON WITHIN REACH. WILL CONTINUE TO MONITOR.
--- NOTE | 2018-11-24 00:39 | NUR ---
PT RESTING, BREATHING EVEN AND UNLABORED WITH NO SOB NOTED. NO SIGNS OF DISTRESS NOTED. CALL BUTTON WITHIN REACH. WILL CONTINUE TO MONITOR.
--- NOTE | 2018-11-24 04:07 | NUR ---
PT STATES SHE HAD 2 LOOSE BM. DENIES PAIN AT THIS TIME. NO SIGNS OF DISTRESS NOTED. CALL BUTTON WITHIN REACH. WILL MONITOR.
--- NOTE | 2018-11-24 04:56 | NUR ---
PT SLEPT MOST OF THE NIGHT WITH NO SIGNS OF DISTRESS NOTED. BREATHING EVEN AND UNLABORED ON RA WITH NO SOB NOTED. IV PATENT, SL. PT REPORTED ABD PAIN X1, MEDICATED PER EMAR WITH RELIEF. PT HAD BM X2 LOOSE. NO SIGNS OF DISTRESS. CALL BUTTON WITHIN REACH. WILL CONTINUE TO MONITOR AND ENDORSE CARE TO DAY SHIFT RN.
[2018-11-24 06:31] LABS: BASOPHIL % 0.3 % (0-2); PLATELET COUNT 272 x10^3mcL (130-400); RED CELL DISTRIBUTION WIDTH 14.4 % (11.5-14.5)
[2018-11-24 06:32] VITALS: BP 165/85
[2018-11-24 07:21] LABS: CALCIUM 9.5 mg/dL (8.5-10.1); CARBON DIOXIDE 22.9 mmol/L (21-32); MAGNESIUM 1.9 mg/dL (1.8-2.4); POTASSIUM SERUM 3.4 mmol/L (3.5-5.1)
--- NOTE | 2018-11-24 07:22 | NUR ---
PT RESTING, BREATHING EVEN AND UNLABORED WITH NO SOB NOTED. CALL BUTTON WITHIN REACH. ENDORSED CARE TO DAY SHIFT RN, ALL QUESTONS ADDRESSED.
--- NOTE | 2018-11-24 08:00 | NUR ---
RECEIVED PATIENT A/A/OX4. CLEAR SPEECH. TELE#6; SR; HR = 64/MIN. DENIED CHEST PAIN. BREATHING CLEAR JESUS. O2 SAT 97% ON RA. FONISHED 50% OF SOFT DIET BREAKFAST. NO N/V. REPORTED HAD BM X5 AFTER LACTULOSE GIVEN YESTERDAY. LOOSE STOOL NOTED. C/O ABD PAIN ON AND OFF, 11/17. NORCO PER ORDER. IVHL'D TO Dorie MADISON. PATENT. SKIN INTACT. CALL LIGHT IN REACH.
[2018-11-24 08:40] VITALS: BP 147/90
[2018-11-24 11:16] VITALS: BP 150/79
[2018-11-24 11:29] VITALS: BP 150/79
--- NOTE | 2018-11-24 11:29 | NUR ---
PATIENT WAS SLEEPING AFTER NORCO 10/[address] PO GIVEN AT [address] BAKER CAME TO SEE PATIENT. ORDER OF DISCHARGE WRITTEN. PATIENT C/O MIGRAINE HEADACHE. DR. BAKER AWARE OF. NEW ORDER WRITTEN.
--- NOTE | 2018-11-24 11:46 | NUR ---
IMITREX 50MG PO PER ORDER. PATIENT C/O THAT SHE HAD CAD AND CARDIAC STENT X4. DOUBLE CHECKED WITH DR. BAKER. IMITREX 50MG PO WAS OK TO GIVEN.
--- NOTE | 2018-11-24 15:03 | NUR ---
D/C TO HOME PER ORDER. ENSTRUCTION GIVEN. IV D/C'D. OVER NEEDLE CATH INTACT. PATIENT WANTED PAIN MEDS ON DISCHARGE PRESCRIPTION. DR. BAKER PAGED
--- NOTE | 2018-11-24 15:55 | NUR ---
DR. BAKER CALLED BACK AND INDICATED NO PAIN MEDS NEEDED FOR DISCHARGE. IF ABD PAIN UNCONTROL, TO FOLLOW UP WITH DR. DEL ANGEL. IF ABD INCREASING. MAY GO TO ER. EXPLAINED DR. BAKER'S ORDER TO PATIENT. SHE SAID SHE WAS UNABLE TO GO HOME WITHOUT NARCOTIC PAIN MEDS. CODY, CHARGE NURSE NOTIFIED.
--- NOTE | 2018-11-24 16:15 | NUR ---
PATIENT WENT TO STATION AND TALKED W/ CODY, CHARGE NURSE.
--- NOTE | 2018-11-24 16:37 | NUR ---
D/C TO HOME NOW. CONDITION STABLE.
== END 2018-11-24 16:40 | disposition home health service (06) | DRG 871 ==
LOC: ED 07:49 → DU 11:18
PROVIDERS: Emergency Medicine; Internal Medicine Pulmonary Disease; ADMIT Internal Medicine Pulmonary Disease
DX: A41.89 Other specified sepsis (principal); N17.0 Acute kidney failure with tubular necrosis; K57.32 Diverticulitis of large intestine without perforation or abscess without bleeding; A08.0 Rotaviral enteritis; E86.0 Dehydration; K59.00 Constipation, unspecified; I11.9 Hypertensive heart disease without heart failure; I25.10 Atherosclerotic heart disease of native coronary artery without angina pectoris; Z68.30 Body mass index [BMI] 30.0-30.9, adult; Z87.01 Personal history of pneumonia (recurrent); Z95.5 Presence of coronary angioplasty implant and graft
CPT/HCPCS: G0378; J1650; J1956; J2270; J2405; J2543; J3010; J3490; J7030; J7040

== ENCOUNTER 2018-12-01 14:08 | Inpatient (IN) | payer OTHER ==
[~2018-12-01] VITALS: Ht 162.6 cm; Wt 83.9 kg
[~2018-12-01 14:08] MED LIST changes: +CIPRO500 MG PO; +FLAGYL500 MG PO; +LACTULOSE10 GM/152 PO
[2018-12-01 15:59] LABS: BASOPHIL % 0.5 % (0-2); RED CELL DISTRIBUTION WIDTH 14.3 % (11.5-14.5)
[2018-12-01 16:00] LABS: PLATELET COUNT 405 x10^3mcL (130-400)
[2018-12-01 16:10] LABS: CALCIUM 9.4 mg/dL (8.5-10.1); CARBON DIOXIDE 26.4 mmol/L (21-32); CHLORIDE SERUM 106 mmol/L (98-107); CREATININE SERUM 1.5 mg/dL (0.6-1.0); GFR1 36 mL/min; GLUCOSE SERUM 145 mg/dL (74-106); POTASSIUM SERUM 4.3 mmol/L (3.5-5.1); SODIUM SERUM 142 mmol/L (136-145)
[2018-12-01 16:29] LABS: ALBUMIN 3.8 g/dL (3.4-5.0); ALKALINE PHOSPHATASE 67 U/L (46-116); ALT/SGPT 31 U/L (14-59); AMYLASE 32 U/L (25-115); AST/SGOT 39 U/L (15-37); BILIRUBIN TOTAL 0.3 mg/dL (0.20-1.00); CHOLESTEROL 157 mg/dL (<200); HDL CHOLESTEROL 62 mg/dL (40-60); LIPASE 61 IU/L (73-393); T4(THYROXINE) 9.3 ug/dL (4.7-13.3); TOTAL PROTEIN, SERUM 7.3 g/dL (6.4-8.2)
[2018-12-01 16:41] LABS: microscopic required? YES; urine erythrocyte NEGATIVE (NEGATIVE)
[2018-12-01 21:04] VITALS: BP 205/98
[2018-12-01 21:14] VITALS: Ht 162.6 cm; Wt 83.9 kg
[2018-12-01 22:48] VITALS: BP 189/92
[2018-12-02 05:36] VITALS: BP 161/88
[2018-12-02 06:53] LABS: BASOPHIL % 0.3 % (0-2); PLATELET COUNT 341 x10^3mcL (130-400); RED CELL DISTRIBUTION WIDTH 14.4 % (11.5-14.5)
[2018-12-02 07:20] LABS: ALBUMIN 3.4 g/dL (3.4-5.0); BILIRUBIN TOTAL 0.24 mg/dL (0.20-1.00); CALCIUM 8.9 mg/dL (8.5-10.1); CARBON DIOXIDE 22.2 mmol/L (21-32); CREATININE SERUM 1.1 mg/dL (0.6-1.0); POTASSIUM SERUM 3.1 mmol/L (3.5-5.1); TOTAL PROTEIN, SERUM 6.6 g/dL (6.4-8.2)
[2018-12-02 09:51] VITALS: BP 149/76
[2018-12-02 13:08] VITALS: BP 149/76
== END 2018-12-02 13:45 | disposition home or self-care (01) | DRG 391 ==
LOC: ED 14:08 → DU 18:44
PROVIDERS: Emergency Medicine; ADMIT Internal Medicine Pulmonary Disease
DX: K57.32 Diverticulitis of large intestine without perforation or abscess without bleeding (principal); N17.0 Acute kidney failure with tubular necrosis; E87.2 Acidosis; E86.0 Dehydration; E87.6 Hypokalemia; I11.9 Hypertensive heart disease without heart failure; I25.10 Atherosclerotic heart disease of native coronary artery without angina pectoris; E78.5 Hyperlipidemia, unspecified; E03.9 Hypothyroidism, unspecified; Z68.32 Body mass index [BMI] 32.0-32.9, adult; Z95.5 Presence of coronary angioplasty implant and graft
CPT/HCPCS: 83880; G0378; J0696; J1644; J2270; J2405; J2543; J3010; J3490; J7030; J7040; Q9967

== ENCOUNTER 2018-12-05 18:56 | Inpatient (IN) | payer OTHER ==
[~2018-12-05] VITALS: Ht 162.6 cm; Wt 81.3 kg
[2018-12-05 19:12] VITALS: Ht 162.6 cm; Wt 81.3 kg
[2018-12-05 19:38] LABS: BASOPHIL % 0.3 % (0-2); PLATELET COUNT 335 x10^3mcL (130-400)
[2018-12-05 19:39] LABS: RED CELL DISTRIBUTION WIDTH 14.7 % (11.5-14.5)
[2018-12-05 19:57] LABS: CALCIUM 10.3 mg/dL (8.5-10.1); CARBON DIOXIDE 25.2 mmol/L (21-32); CREATININE SERUM 1.3 mg/dL (0.6-1.0); POTASSIUM SERUM 3.2 mmol/L (3.5-5.1)
[2018-12-05 20:02] LABS: ALBUMIN 3.8 g/dL (3.4-5.0); BILIRUBIN TOTAL 0.2 mg/dL (0.20-1.00); TOTAL PROTEIN, SERUM 7.1 g/dL (6.4-8.2)
[2018-12-05 23:15] LABS: BASOPHIL % 0.4 % (0-2); PLATELET COUNT 317 x10^3mcL (130-400)
[2018-12-05 23:25] LABS: RED CELL DISTRIBUTION WIDTH 14.8 % (11.5-14.5)
[2018-12-06 01:21] VITALS: BP 182/86
[2018-12-06 02:38] VITALS: BP 140/79
[2018-12-06 03:57] VITALS: BP 131/76
[2018-12-06 06:30] LABS: BASOPHIL % 0.4 % (0-2); PLATELET COUNT 310 x10^3mcL (130-400)
[2018-12-06 06:41] LABS: ALBUMIN 3.5 g/dL (3.4-5.0); BILIRUBIN TOTAL 0.24 mg/dL (0.20-1.00); CALCIUM 10.3 mg/dL (8.5-10.1); CARBON DIOXIDE 25.7 mmol/L (21-32); CREATININE SERUM 1.1 mg/dL (0.6-1.0); POTASSIUM SERUM 3.4 mmol/L (3.5-5.1); TOTAL PROTEIN, SERUM 6.9 g/dL (6.4-8.2)
[2018-12-06 08:00] LABS: RED CELL DISTRIBUTION WIDTH 14.7 % (11.5-14.5)
[2018-12-06 08:40] VITALS: BP 135/79
[2018-12-06 16:52] VITALS: BP 143/79
[2018-12-06 20:27] VITALS: BP 170/81
[2018-12-07 06:42] LABS: BASOPHIL % 0.4 % (0-2); PLATELET COUNT 295 x10^3mcL (130-400)
[2018-12-07 06:46] VITALS: BP 175/91
[2018-12-07 07:02] LABS: BILIRUBIN TOTAL 0.25 mg/dL (0.20-1.00); CARBON DIOXIDE 25.2 mmol/L (21-32); CREATININE SERUM 1.2 mg/dL (0.6-1.0); MAGNESIUM 2.1 mg/dL (1.8-2.4); POTASSIUM SERUM 4.5 mmol/L (3.5-5.1)
[2018-12-07 07:11] LABS: RED CELL DISTRIBUTION WIDTH 14.8 % (11.5-14.5)
[2018-12-07 07:20] LABS: ALBUMIN 3.2 g/dL (3.4-5.0)
[2018-12-07 08:30] VITALS: BP 144/65
[2018-12-07 17:15] VITALS: BP 151/78
[2018-12-07 19:47] VITALS: BP 136/71
[2018-12-08 06:35] VITALS: BP 189/99
[2018-12-08 07:35] VITALS: BP 187/95
[2018-12-08 11:50] VITALS: BP 178/88
[2018-12-08 12:03] VITALS: BP 198/111
[2018-12-08 12:55] VITALS: BP 176/84
[2018-12-08 13:55] VITALS: BP 156/67
== END 2018-12-08 14:49 | disposition home or self-care (01) | DRG 377 ==
LOC: ED 18:56 → MU 12-06 00:33
PROVIDERS: Emergency Medicine; ADMIT Internal Medicine Pulmonary Disease
DX: K57.33 Diverticulitis of large intestine without perforation or abscess with bleeding (principal); N17.0 Acute kidney failure with tubular necrosis; I16.0 Hypertensive urgency; I10 Essential (primary) hypertension; E03.9 Hypothyroidism, unspecified; Z68.30 Body mass index [BMI] 30.0-30.9, adult; Z95.5 Presence of coronary angioplasty implant and graft; Z79.82 Long term (current) use of aspirin
CPT/HCPCS: G0378; J0360; J2270; J2543; J3490; J7120

== ENCOUNTER 2018-12-24 20:06 | Emergency (ER) | payer OTHER ==
[~2018-12-24] VITALS: Ht 162.6 cm; Wt 78.5 kg
[2018-12-24 20:15] VITALS: Ht 162.6 cm; Wt 78.5 kg
[2018-12-24 21:15] LABS: BASOPHIL % 0.4 % (0-2); PLATELET COUNT 343 x10^3mcL (130-400); RED CELL DISTRIBUTION WIDTH 13.8 % (11.5-14.5)
[2018-12-24 21:16] LABS: microscopic required? YES; urine erythrocyte NEGATIVE (NEGATIVE)
[2018-12-24 21:25] LABS: AMPHETAMINE QUAL UR NONE DETECTED (See below)
[2018-12-24 21:30] LABS: CALCIUM 10.1 mg/dL (8.5-10.1); CARBON DIOXIDE 23.8 mmol/L (21-32); CREATININE SERUM 1.1 mg/dL (0.6-1.0); POTASSIUM SERUM 4.6 mmol/L (3.5-5.1)
[2018-12-24 21:34] LABS: ALBUMIN 4.3 g/dL (3.4-5.0); BILIRUBIN TOTAL 0.38 mg/dL (0.20-1.00); MAGNESIUM 2.3 mg/dL (1.8-2.4); TOTAL PROTEIN, SERUM 8.1 g/dL (6.4-8.2)
[2018-12-25 00:32] VITALS: BP 156/87
== END 2018-12-25 00:32 | disposition home or self-care (01) ==
LOC: ED 20:06
PROVIDERS: Emergency Medicine
DX: I10 Essential (primary) hypertension (principal); K57.32 Diverticulitis of large intestine without perforation or abscess without bleeding; Z90.710 Acquired absence of both cervix and uterus; Z91.048 Other nonmedicinal substance allergy status
CPT/HCPCS: 82962; J2405; J3010; J3490; J7030; Q9967

== ENCOUNTER 2018-12-27 18:00 | Emergency (ER) | payer OTHER ==
[~2018-12-27] VITALS: Ht 170.2 cm; Wt 75.3 kg
[2018-12-27 18:12] VITALS: Ht 170.2 cm; Wt 75.3 kg
[2018-12-27 19:54] LABS: BASOPHIL % 0.3 % (0-2); PLATELET COUNT 354 x10^3mcL (130-400); RED CELL DISTRIBUTION WIDTH 14.2 % (11.5-14.5)
[2018-12-27 20:11] LABS: CALCIUM 9.4 mg/dL (8.5-10.1); CARBON DIOXIDE 19.3 mmol/L (21-32); CHLORIDE SERUM 103 mmol/L (98-107); CREATININE SERUM 1.3 mg/dL (0.6-1.0); GFR1 43 mL/min; GLUCOSE SERUM 91 mg/dL (74-106); POTASSIUM SERUM 3.2 mmol/L (3.5-5.1); SODIUM SERUM 138 mmol/L (136-145)
[2018-12-27 20:16] LABS: ALBUMIN 3.9 g/dL (3.4-5.0); ALKALINE PHOSPHATASE 75 U/L (46-116); ALT/SGPT 23 U/L (14-59); AST/SGOT 19 U/L (15-37); BILIRUBIN TOTAL 0.36 mg/dL (0.20-1.00); TOTAL PROTEIN, SERUM 7.4 g/dL (6.4-8.2)
[2018-12-27 20:32] LABS: C REACTIVE PROTEIN < 0.2 mg/dL (<=0.9)
[2018-12-27 20:46] LABS: ERYTHROCYTE SED RATE 20 mm/hr (0-30)
[2018-12-27] MEDS ORDERED: AMBIEN10 MG PO (21:51)
[2018-12-27] MEDS ORDERED: BUTISOL SODIUM30 MG PO (21:51)
[2018-12-27] MEDS ORDERED: NORCO1 TA2 PO (22:02)
[2018-12-27] MEDS ORDERED: TYLENOL WITH CO1 TA2 (22:03)
[2018-12-27] MEDS ORDERED: TRAMADOL HCL50 MG PO (22:03)
[2018-12-27 23:59] VITALS: BP 148/88
== END 2018-12-27 23:59 | disposition left against medical advice (07) ==
LOC: ED 18:00
PROVIDERS: Specialist
DX: R89.5 Abnormal microbiological findings in specimens from other organs, systems and tissues (principal); R50.9 Fever, unspecified; I10 Essential (primary) hypertension; Z13.89 Encounter for screening for other disorder; Z91.018 Allergy to other foods
CPT/HCPCS: J0696; J1885

== ENCOUNTER 2019-01-31 13:57 | Emergency (ER) | payer OTHER ==
[~2019-01-31] VITALS: Ht 162.6 cm; Wt 77.1 kg
[~2019-01-31 13:57] MED LIST changes: +BUTISOL SODIUM30 MG PO; +NORCO1 TA2 PO; +TRAMADOL HCL50 MG PO; +TYLENOL WITH CO1 TA2
[2019-01-31 14:02] VITALS: Ht 162.6 cm; Wt 77.1 kg
[2019-01-31 14:41] LABS: BASOPHIL % 0.5 % (0-2); PLATELET COUNT 346 x10^3mcL (130-400); RED CELL DISTRIBUTION WIDTH 14.4 % (11.5-14.5)
[2019-01-31 15:32] LABS: ALBUMIN 3.5 g/dL (3.4-5.0); BILIRUBIN TOTAL 0.3 mg/dL (0.20-1.00); CARBON DIOXIDE 24.3 mmol/L (21-32); CREATININE SERUM 1.2 mg/dL (0.6-1.0); POTASSIUM SERUM 3.9 mmol/L (3.5-5.1); TOTAL PROTEIN, SERUM 7.4 g/dL (6.4-8.2)
[2019-01-31 18:43] VITALS: BP 155/82
== END 2019-01-31 19:35 | disposition left against medical advice (07) ==
LOC: ED 13:57
PROVIDERS: Emergency Medicine
DX: I24.9 Acute ischemic heart disease, unspecified (principal); R07.89 Other chest pain; I10 Essential (primary) hypertension; Z91.018 Allergy to other foods
CPT/HCPCS: 83880; J3490; Q0092

== ENCOUNTER 2019-02-24 13:49 | Emergency (ER) | payer OTHER ==
[~2019-02-24] VITALS: Ht 162.6 cm; Wt 77.1 kg
[2019-02-24 14:09] VITALS: Ht 162.6 cm; Wt 77.1 kg
[2019-02-24 15:29] LABS: BASOPHIL % 0.1 % (0-2); PLATELET COUNT 383 x10^3mcL (130-400); RED CELL DISTRIBUTION WIDTH 14.3 % (11.5-14.5)
[2019-02-24 15:40] LABS: CALCIUM 9.6 mg/dL (8.5-10.1); CARBON DIOXIDE 27.7 mmol/L (21-32); CREATININE SERUM 1.4 mg/dL (0.6-1.0)
[2019-02-24 15:44] LABS: BILIRUBIN TOTAL 0.33 mg/dL (0.20-1.00); TOTAL PROTEIN, SERUM 8.2 g/dL (6.4-8.2)
[2019-02-24 22:14] VITALS: BP 193/96
== END 2019-02-24 22:14 | disposition home or self-care (01) ==
LOC: ED 13:49
DX: R07.89 Other chest pain (principal); R10.811 Right upper quadrant abdominal tenderness; R10.813 Right lower quadrant abdominal tenderness; I10 Essential (primary) hypertension; Z90.89 Acquired absence of other organs; Z91.018 Allergy to other foods
CPT/HCPCS: J1885; J2270; J2405; J3490; Q0092

== ENCOUNTER 2019-03-06 00:44 | Emergency (ER) | payer OTHER ==
[~2019-03-06] VITALS: Ht 162.6 cm; Wt 76.2 kg
[2019-03-06 00:48] VITALS: Ht 162.6 cm; Wt 76.2 kg
[2019-03-06 01:39] LABS: BASOPHIL % 0.5 % (0-2); PLATELET COUNT 353 x10^3mcL (130-400); RED CELL DISTRIBUTION WIDTH 13.9 % (11.5-14.5)
[2019-03-06 01:41] LABS: CALCIUM 8.5 mg/dL (8.5-10.1); CARBON DIOXIDE 25.6 mmol/L (21-32); CREATININE SERUM 1.3 mg/dL (0.6-1.0); POTASSIUM SERUM 3.1 mmol/L (3.5-5.1)
[2019-03-06 01:46] LABS: ALBUMIN 3.7 g/dL (3.4-5.0); BILIRUBIN TOTAL 0.18 mg/dL (0.20-1.00); TOTAL PROTEIN, SERUM 7.3 g/dL (6.4-8.2)
[2019-03-06 02:30] VITALS: BP 161/100
== END 2019-03-06 02:30 | disposition home or self-care (01) ==
LOC: ED 00:44
PROVIDERS: Emergency Medicine
DX: R07.89 Other chest pain (principal); I10 Essential (primary) hypertension; R10.30 Lower abdominal pain, unspecified; Z90.89 Acquired absence of other organs; Z88.8 Allergy status to other drugs, medicaments and biological substances
CPT/HCPCS: 36415; J2270; Q0092

== ENCOUNTER 2019-05-21 15:46 | Emergency (ER) | payer OTHER ==
[~2019-05-21] VITALS: Ht 165.1 cm; Wt 81.2 kg
[2019-05-21 15:49] VITALS: BP 141/83; Ht 165.1 cm; Wt 81.2 kg
== END 2019-05-21 16:32 | disposition home or self-care (01) ==
LOC: ED 15:46
DX: K58.0 Irritable bowel syndrome with diarrhea (principal); I10 Essential (primary) hypertension; Z90.89 Acquired absence of other organs; Z91.018 Allergy to other foods

== ENCOUNTER 2019-06-15 15:37 | Emergency (ER) | payer OTHER ==
[~2019-06-15] VITALS: Ht 170.2 cm; Wt 80.3 kg
[2019-06-15 15:58] VITALS: Ht 170.2 cm; Wt 80.3 kg
[2019-06-15 16:45] LABS: BASOPHIL % 0.4 % (0-2); RED CELL DISTRIBUTION WIDTH 14.4 % (11.5-14.5)
[2019-06-15 16:47] LABS: PLATELET COUNT 495 x10^3mcL (130-400)
[2019-06-15 16:52] LABS: CALCIUM 9.3 mg/dL (8.5-10.1); CARBON DIOXIDE 19.4 mmol/L (21-32); CREATININE SERUM 1.7 mg/dL (0.6-1.0); POTASSIUM SERUM 3.4 mmol/L (3.5-5.1)
[2019-06-15 16:57] LABS: ALBUMIN 4.1 g/dL (3.4-5.0); BILIRUBIN TOTAL 0.3 mg/dL (0.20-1.00)
[2019-06-15 18:59] VITALS: BP 146/79
== END 2019-06-15 18:59 | disposition home or self-care (01) ==
LOC: ED 15:37
PROVIDERS: Emergency Medicine
DX: R10.9 Unspecified abdominal pain (principal); R06.02 Shortness of breath; I10 Essential (primary) hypertension; Z90.89 Acquired absence of other organs; Z76.0 Encounter for issue of repeat prescription; Z91.018 Allergy to other foods
CPT/HCPCS: 36415; 83880; Q0092

== ENCOUNTER 2019-06-27 17:12 | Emergency (ER) | payer OTHER ==
[~2019-06-27] VITALS: Ht 162.6 cm; Wt 77.1 kg
[2019-06-27 17:22] VITALS: Ht 162.6 cm; Wt 77.1 kg
[2019-06-27 17:48] LABS: BASOPHIL % 0.4 % (0-2); PLATELET COUNT 344 x10^3mcL (130-400)
[2019-06-27 18:16] LABS: ALBUMIN 3.8 g/dL (3.4-5.0); BILIRUBIN TOTAL 0.32 mg/dL (0.20-1.00); CALCIUM 9.2 mg/dL (8.5-10.1); CARBON DIOXIDE 29.2 mmol/L (21-32); CREATININE SERUM 1.4 mg/dL (0.6-1.0); POTASSIUM SERUM 4.1 mmol/L (3.5-5.1); TOTAL PROTEIN, SERUM 7.1 g/dL (6.4-8.2)
[2019-06-27 19:30] LABS: microscopic required? NO
[2019-06-27 19:54] LABS: urine erythrocyte NEGATIVE (NEGATIVE)
[2019-06-27 22:46] VITALS: BP 183/100
== END 2019-06-27 22:46 | disposition home or self-care (01) ==
LOC: ED 17:12
PROVIDERS: Emergency Medicine
DX: A08.4 Viral intestinal infection, unspecified (principal); I10 Essential (primary) hypertension; Z91.018 Allergy to other foods; Z86.79 Personal history of other diseases of the circulatory system
CPT/HCPCS: 83880; 87804; J1885; J2405; J3010; J3490; J7030; Q0092

== ENCOUNTER 2019-07-05 20:35 | Emergency (ER) | payer OTHER ==
[~2019-07-05] VITALS: Ht 162.6 cm; Wt 80.3 kg
[2019-07-05 20:43] VITALS: Ht 162.6 cm; Wt 80.3 kg
[2019-07-05 21:48] LABS: BASOPHIL % 0.3 % (0-2); PLATELET COUNT 400 x10^3mcL (130-400); RED CELL DISTRIBUTION WIDTH 14.5 % (11.5-14.5)
[2019-07-05 21:56] LABS: CALCIUM 9.4 mg/dL (8.5-10.1); CARBON DIOXIDE 28.7 mmol/L (21-32); CREATININE SERUM 1.3 mg/dL (0.6-1.0); POTASSIUM SERUM 3.7 mmol/L (3.5-5.1)
[2019-07-05 22:01] LABS: ALBUMIN 3.8 g/dL (3.4-5.0); BILIRUBIN TOTAL 0.3 mg/dL (0.20-1.00); TOTAL PROTEIN, SERUM 7.7 g/dL (6.4-8.2)
[2019-07-06 01:00] VITALS: BP 181/85
== END 2019-07-06 01:00 | disposition left against medical advice (07) ==
LOC: ED 20:35
PROVIDERS: Specialist
DX: R55 Syncope and collapse (principal); I25.10 Atherosclerotic heart disease of native coronary artery without angina pectoris; G89.29 Other chronic pain; R10.9 Unspecified abdominal pain; I10 Essential (primary) hypertension; E78.00 Pure hypercholesterolemia, unspecified; K58.9 Irritable bowel syndrome, unspecified; Z90.89 Acquired absence of other organs; Z91.018 Allergy to other foods; R06.02 Shortness of breath
CPT/HCPCS: 36600; 83880; J1885; J7030; Q0092

== ENCOUNTER 2019-07-06 16:19 | Emergency (ER) | payer OTHER ==
[~2019-07-06] VITALS: Ht 162.6 cm; Wt 78.0 kg
[2019-07-06 16:21] VITALS: Ht 162.6 cm; Wt 78.0 kg
[2019-07-06 17:18] LABS: BASOPHIL % 0.3 % (0-2); PLATELET COUNT 378 x10^3mcL (130-400)
[2019-07-06 17:37] LABS: CALCIUM 9.4 mg/dL (8.5-10.1); CARBON DIOXIDE 31.1 mmol/L (21-32); CREATININE SERUM 1.3 mg/dL (0.6-1.0); POTASSIUM SERUM 3.7 mmol/L (3.5-5.1)
[2019-07-06 17:41] LABS: ALBUMIN 3.8 g/dL (3.4-5.0); MAGNESIUM 2.4 mg/dL (1.8-2.4); TOTAL PROTEIN, SERUM 7.6 g/dL (6.4-8.2)
[2019-07-06 18:16] LABS: BILIRUBIN TOTAL 0.3 mg/dL (0.20-1.00)
[2019-07-06 22:11] VITALS: BP 166/89
== END 2019-07-06 22:11 | disposition home or self-care (01) ==
LOC: ED 16:19
PROVIDERS: Emergency Medicine
DX: J10.1 Influenza due to other identified influenza virus with other respiratory manifestations (principal); E86.0 Dehydration
CPT/HCPCS: 87804; J1885; J2405; J3010; J7030

== ENCOUNTER 2019-07-09 02:55 | Inpatient (IN) | payer OTHER ==
[~2019-07-09] VITALS: Ht 162.6 cm; Wt 79.6 kg
[2019-07-09 03:04] VITALS: Ht 162.6 cm; Wt 79.6 kg
--- NOTE | 2019-07-09 03:23 | NUR ---
PT. BIBA C/O SOB WITH MINIMAL EXERTION OR MOVEMENT, CHEST PAIN, 5/10 PRESSURE, X 1 DAY, LEFT LOWER ABDOMINAL PAIN, 9/10 PRESSURE, CONSTIPATED LBM THIS AM, HEADACHE 5/10 THROBBING, PT. STATES SHE TRIPPED AND FELL DOWN THE STAIRS, DENIES HEAD TRAUMA, STATES SHE LOST CONSCIOUSNESS, AAOX4, PERRLA, ANSWERS QUESITIONS APPROPIATELY, FOLLOWS COMMANDS, DENIES ANY PAIN FROM FALL-MUSCLESKELETAL, PT. STATES SHE IS CURRENTLY TAKING PLAVIX, PLACED IN BED 7 , COLLECTED URINED SAMPLE, PT. WAS ABLE TO AMBULATE WITH STEADY GAIT TO RESTROOM, PT. ALSO STATED SHE WAS HERE PREVIOUSLY AND WAS DIAGNOSED WITH THE FLU, PENDING MSE, SAFETY PRECAUTIONS IN PLACE, PLACED ON CM + PULSE OX, WILL MONITOR.
--- NOTE | 2019-07-09 03:29 | NUR ---
DR. MAURICE AT BEDSIDE WITH MSE
--- NOTE | 2019-07-09 03:36 | NUR ---
PT. REQUESTING SLEEPING PILLS, DR. MAURICE MADE AWARE,
--- NOTE | 2019-07-09 04:31 | NUR ---
PT TO CT VIA [facility]
[2019-07-09 04:39] LABS: BASOPHIL % 0.7 % (0-2); RED CELL DISTRIBUTION WIDTH 13.6 % (11.5-14.5)
[2019-07-09 04:41] LABS: PLATELET COUNT 407 x10^3mcL (130-400)
[2019-07-09 04:47] LABS: UA SPECIFIC GRAVITY 1.015 (1.005-1.035); microscopic required? YES; urine erythrocyte NEGATIVE (NEGATIVE)
[2019-07-09 04:49] LABS: CARBON DIOXIDE 26.8 mmol/L (21-32); CREATININE SERUM 1.6 mg/dL (0.6-1.0); POTASSIUM SERUM 3.2 mmol/L (3.5-5.1)
--- NOTE | 2019-07-09 04:51 | NUR ---
PT. RETURNED FROM CT VIA [facility] WITH TECH
[2019-07-09 04:53] LABS: ALBUMIN 3.8 g/dL (3.4-5.0); BILIRUBIN TOTAL 0.3 mg/dL (0.20-1.00); TOTAL PROTEIN, SERUM 7.5 g/dL (6.4-8.2)
--- NOTE | 2019-07-09 04:58 | NUR ---
PT. LAYING IN BED, AAOX4, NO ACUTE DISTRESS NOTED, RR E/U, STATES 10/17 HEADACHE-PRESSURE LIKE, VSS, WILL MONITOR, UPDATED ON POC, PENDING RESULTS,
--- NOTE | 2019-07-09 05:03 | NUR ---
PT B/P 188/94, PT. STATES "THIS IS MY BASELINE." WILL REASSESS B/P IN 15 MIN
--- NOTE | 2019-07-09 05:22 | NUR ---
MEDICATED PT PER MD ORDER, PT. TOLERATED WELL, SEE EMAR
--- NOTE | 2019-07-09 06:22 | NUR ---
GAVE REPORT TO DENIES FROM [facility]
--- NOTE | 2019-07-09 06:44 | NUR ---
PER PHARMACY OK TO GIVE CLONIDINE 0.2 MG ONCE, EVEN IF PT IS TAKING METOPROLOL ON A DAILY BASIS, MONITOR VITAL SIGNS PER PHARMACY.
--- NOTE | 2019-07-09 06:45 | NUR ---
OBTAINED VERBAL ORDER FROM DR MELISA BAKER FOR CLONIDINE 0.2 MG ONCE, FOR B/P 169/102,
--- NOTE | 2019-07-09 07:18 | NUR ---
CALLED TO GIVE REPORT TO KATERINE MAYER, STATED TO CALL BACK IN 10 MIN
--- NOTE | 2019-07-09 08:53 | NUR ---
PT SITTING IN BED. NO ACUTE DISTRESS NOTED. ADMIN AM MEDS. TOLERATED WELL. REFUSED POTASSIUM TABLETS. PT C/O DAMON, ADMIN NORCO ORDERED. CONNECTED PT TO LR @ 80 ML/HR. IV FLUSHING WELL, DRESSING CDI. ALL NEEDS MET AT THIS TIME. WILL CONTINUE TO MONITOR. CALL LIGHT IN REACH. BED IN LOWEST POSITION.
[2019-07-09 11:56] VITALS: BP 168/98
[2019-07-09 12:21] VITALS: BP 115/61
[2019-07-09] MEDS ORDERED: ONDANSETRON4 M3 PO (14:15)
[2019-07-09] MEDS ORDERED: CELEBREX200 MG PO (14:16)
[2019-07-09] MEDS ORDERED: NITROGLYCERIN0.4 MG SL (14:17)
[2019-07-09] MEDS ORDERED: AMLODIPINE BESYL5 M2 PO (14:17)
[2019-07-09] MEDS ORDERED: CYMBALTA30 M1 PO (14:18)
[2019-07-09] MEDS ORDERED: TAM75 PO (14:20)
--- NOTE | 2019-07-09 14:31 | NUR ---
PT SITTING IN BED. NO ACUTE DISTRESS NOTED. DR. CLARKE AT BEDSIDE, PER DR. CLARKE OK TO ADMIT INPATIENT AND TRANSFER TO CONTRACTED FACILITY. PT C/O 01/17 THROBBING DAMON. MEDICATED WITH NORCO PER EMAR. PHYSICAL THERAPY PRESENT, WORKING WITH PT. ALL NEEDS MET AT THIS TIME. WILL CONTINUE TO MONITOR. BED IN LOWEST POSITION.
--- NOTE | 2019-07-09 15:24 | NUR ---
SPOKE WITH ERICKA IN LAB. PER ERICKA THERE IS STILL SPECIMEN AVAILABLE AND WILL ADD URINE CULTURE.
--- NOTE | 2019-07-09 15:31 | NUR ---
PHYSICAL THERAPY DAILY NOTES CO-SIGN All documentation done by the Phlebotomy Lab Assistant for 07/09/19 has been reviewed. I agree with the documentation. Reviewed/Co-Signed by: Luda Bond PT Documentation Done by: ZAC JUAREZ, SPT
--- NOTE | 2019-07-09 16:44 | NUR ---
PT LAYING IN BED. NO ACUTE DISTRESS NOTED. ADMIN IV ROCEPHIN PER EMAR. IV INFUSING WELL. NO REDNESS OR SWELLING. ALL NEEDS MET AT THIS TIME. WILL CONTINUE TO MONITOR. CALL LIGHT IN REACH. BED IN LOWEST POSITION.
[2019-07-09 16:46] VITALS: BP 135/67
--- NOTE | 2019-07-09 18:36 | NUR ---
PT LAYING IN BED RESTING. NO ACUTE DISTRESS NOTED. BREATHING EVEN AND UNLABORED. IV INFUSING WELL, NO SWELLING OR REDNESS NOTED. ALL NEEDS MET AT THIS TIME. WILL ENDORSE TO UX INFORMATION ARCHITECT NURSE. CALL LIGHT IN REACH. BED IN LOWEST POSITION.
--- NOTE | 2019-07-09 19:10 | NUR ---
PT RECEIVED FROM AM NURSE. PT A/O X4, DROWSY, BUT EASILY AROUSABLE, ABLE TO MAKE NEEDS KNOWN. TELE #10, NSR WITH BBB, PT DENIES ANY CP/PRESSURE. PULSES PALPABLE, NO EDEMA PRESENT. BREATHING IS EVEN AND UNLABORED ON RA, NO RESP DISTRESS NOTED. ABD SOFT AND ROUND, PT DENIES N/V. VOIDS FREELY, BRP. GENERALIZED WEAKNESS, AMBULATORY WITH STEADY GAIT. ECCHYMOSIS NOTED TO LLE, SCABS WITH ECCHYMOSIS NOTED TO RONNI ROMAN. PT DENIES HAVING ANY PAIN AT THIS TIME. LR @ 80 ML/HR TO , SITE WNL. DROPLET PRECAUTIONS MAINTAINED FOR INFLUENZA B. NO ACUTE DISTRESS NOTED. BED IN LOWEST SETTING, SIDE RAILS UP X2, CALL LIGHT WITHIN REACH. WILL CONT TO MONITOR.
[2019-07-09 20:14] VITALS: BP 140/62
--- NOTE | 2019-07-09 22:05 | NUR ---
PT C/O INSOMNIA, PRN AMBIEN GIVEN PER EMAR. NO ACUTE DISTRESS NOTED. WILL CONT TO MONITOR.
--- NOTE | 2019-07-09 22:41 | NUR ---
PT C/O 6/10 HEADACHE PAIN AND "LOWER INTESTINAL" PAIN, PRN NORCO GIVEN PER EMAR. NO ACUTE DISTRESS NOTED. WILL CONT TO MONITOR.
--- NOTE | 2019-07-10 04:05 | NUR ---
PT C/O 7/10 HEADACHE AND 5/10 STOMACH PAIN, PRN NORCO GIVEN ORDERED. NO ACUTE DISTRESS NOTED. WILL CONT TO MONITOR.
--- NOTE | 2019-07-10 06:28 | NUR ---
PT SLEPT WELL THROUGHOUT THE EVENING. BREATHING IS EVEN AND UNLABORED, NO RESP DISTRESS NOTED. PT REPORTS GOOD PAIN RELIEF FROM NORCO. NO ACUTE CHANGES ENCOUNTERED DURING SHIFT. ALL NEEDS MET AND ANTICIPATED. IVF INFUSING WELL TO , SITE WNL. DROPLET PRECAUTIONS MAINTAINED. NO ACUTE DISTRESS NOTED. WILL CONT TO MONITOR.
[2019-07-10 06:36] LABS: BASOPHIL % 0.4 % (0-2); PLATELET COUNT 307 x10^3mcL (130-400); RED CELL DISTRIBUTION WIDTH 14.2 % (11.5-14.5)
[2019-07-10 06:55] LABS: BILIRUBIN TOTAL 0.24 mg/dL (0.20-1.00); CALCIUM 8.8 mg/dL (8.5-10.1); CARBON DIOXIDE 23.8 mmol/L (21-32); CREATININE SERUM 1.2 mg/dL (0.6-1.0); POTASSIUM SERUM 4.1 mmol/L (3.5-5.1); TOTAL PROTEIN, SERUM 6.3 g/dL (6.4-8.2)
[2019-07-10 06:59] LABS: ALBUMIN 3.2 g/dL (3.4-5.0)
--- NOTE | 2019-07-10 07:00 | NUR ---
RECIEVED PT RESTING IN BED WITH NO C/O PAIN OR DISTRESS. A/OX4. TELE#10 CONNECTED TO PT, DENIES CP OR PRESSURE. PT ON DROPLET PRECAUTIONS. LR RUNNING AT 80ML/HR IN RIGHT HAND, IV CDI AND PATNET. SAFETY PRECAUTIONS IN PLACE, CALL LIGHT WITHIN REACH, WILL MONITOR.
--- NOTE | 2019-07-10 07:29 | NUR ---
PT IN NO ACUTE DISTRESS. BEDSIDE REPORT GIVEN TO AM NURSE. ALL QUESTIONS AND CONCERNS ADDRESSED.
[2019-07-10 08:00] VITALS: BP 163/86
--- NOTE | 2019-07-10 08:15 | NUR ---
NORCO GIVEN PER EMAR FOR C/O 12/17 DAMON,WILL REASSESS.
--- NOTE | 2019-07-10 12:53 | NUR ---
NORCO GIVEN PER EMAR FOR C/O 12/17 DAMON, WILL REASSESS.
[2019-07-10 13:30] VITALS: BP 130/58
--- NOTE | 2019-07-10 17:10 | NUR ---
NORCO GIVEN PER EMAR FOR C/O 12/17 BODY PAIN, WILL REASSESS.
[2019-07-10 17:40] VITALS: BP 149/69
--- NOTE | 2019-07-10 18:41 | NUR ---
RECIEVED PT RESTING IN BED WITH NO C/O PAIN OR DISTRESS. A/OX4. TELE#10 CONNECTED TO PT, DENIES CP OR PRESSURE. PT ON DROPLET PRECAUTIONS. LR RUNNING AT 80ML/HR IN RIGHT HAND, IV CDI AND PATENT. SAFETY PRECAUTIONS IN PLACE, CALL LIGHT WITHIN REACH, WILL ENDORSE CARE TO NIGHT NURSE.
--- NOTE | 2019-07-10 19:30 | NUR ---
RECEIVED PT RESTING IN BED, NO ACUTE DISTRESS NOTED. PT AOX4, DENIES DAMON/DIZZINESS. TELE # 10 NSR W/ INVERTED T WAVE, DENIES CP. PT HX OF CAD W/ STENT PLACEMENT, ON PLAVIX. PT ON DROPLET ISO FOR HX OF INFLUENZA B. LATEST INFLUENZA RESULT IS NEGATIVE FOR BOTH. PT ON TAMIFLU FORF FLU LIKE SYMPTOMS. RESP EVEN AND UNLABORED ON RA, DENIES SOB. ABD SOFT, ROUND, REPORTING CONSTIPATION LBM= 07/08, WILL INQUIRE ABOUT LAXATIVE PER REQUEST. PT VOIDS FREELY, UA (+) ON ROCEPHIN. GENERALIZED WEAKNESS, AMB. PT TIRES EASILY. BUE ECCHYMOSIS, COLOSED, RONNI. BLE SCABS AND ECCHYMOSIS. RONNI. DENIES PAIN. PT HAS RUE MED SIZE LUMP (HARD), PT UNAWARE OF WERE SHE OBTAIN THIS FROM. IV SITE TO THE RT HAND PATENT, LR @ 80ML/HR. NO REDNESS, SWELLING OR PAIN NOTED. ALL COMFORT AND SAFETY MEASURES PROVIDED FOR, CALL LIGHT WITHIN REACH, BED IN LOWEST POSTIION, WILL CONTINUE TO MONTIOR.
[2019-07-10 21:06] VITALS: BP 175/81
--- NOTE | 2019-07-10 21:23 | NUR ---
[facility] FOR THE COVERING DR FOR DR. CLARKE. PER SENIOR ENVIRONMENTAL ENGINEER, DR CRIS IYER. WILL WAIT FOR CALL BACK.
--- NOTE | 2019-07-10 21:25 | NUR ---
RECEIVED A CALL BACK FROM DR LYNCH, OBTAINED AN ORDER FOR LACTULOSE 30ML PO BID PRN. WILL WAIT FOR PHARMACY TO VERIFY AND ADMINISTER. PT STATES SHE HAS NOT HAD A BM FOR FOUR DAYS.
--- NOTE | 2019-07-11 00:40 | NUR ---
MEDICATED PT WITH NORCO PO D/T PT STATES HER PAIN WOKE HER UP OUT OF DEEP SLEEP. PT TOLERATED MEDICATION WELL, PT REMAINS AFEBRILE, DENIES N/V/D. CALL LIGHT WITHIN REACH, BED IN LOWEST POSITION, WILL CONTINUE TO MONITOR.
--- NOTE | 2019-07-11 05:05 | NUR ---
PT RESTED IN INTERVALS DURING SHIFT, NO ACUTE CHANGES OCCURRING OVERNIGHT. PT AMB SEVERAL TIMES TO THE BATHROOM, TOLERATED WELL. PT DENIES SOB DURING SHIFT. IV SITE REMAINS PATENT TO RT HAND, LR @ 80ML/HR. NO REDNESS, SWELLING OR PAIN NOTED. PT STILL REPORTING GENERALIZED BODY PAIN, MANAGED WITH NORCO. ALL COMFORT AND SAFETY MEASURES PROVIDED FOR, CALL LIGHT WITHIN REACH, BED IN LOWEST POSITION, WILL CONTINUE TO MONITOR.
[2019-07-11 06:30] VITALS: BP 158/86
[2019-07-11 06:59] VITALS: BP 164/94
--- NOTE | 2019-07-11 07:05 | NUR ---
RECIEVED PT RESTING IN BED WITH NO C/O PAIN OR DISTRESS. A/OX4. TELE#10 CONNECTED TO PT, DENIES CP OR PRESSURE. PT ON DROPLET PRECAUTIONS. LR RUNNING AT 80ML/HR IN RIGHT HAND, IV CDI AND PATENT. SAFETY PRECAUTIONS IN PLACE, CALL LIGHT WITHIN REACH, WILL CONTINUE TO MONITOR.
--- NOTE | 2019-07-11 07:26 | NUR ---
ENDORSED ALL CARE TO DAYSHIFT NURSE, ALL COMFORT AND SAFETY MEASURES PROVIDED FOR, CALL LIGHT WITHIN REACH, BED IN LOWEST POSITION, ALL QUESTIONS AND CONCERNS ADDRESSED.
[2019-07-11 07:28] LABS: BASOPHIL % 0.4 % (0-2); PLATELET COUNT 307 x10^3mcL (130-400); RED CELL DISTRIBUTION WIDTH 14.2 % (11.5-14.5)
[2019-07-11 07:36] LABS: POTASSIUM SERUM 3.7 mmol/L (3.5-5.1)
[2019-07-11 07:37] LABS: CALCIUM 8.7 mg/dL (8.5-10.1); CARBON DIOXIDE 21.8 mmol/L (21-32); CREATININE SERUM 1.2 mg/dL (0.6-1.0)
[2019-07-11] MEDS ORDERED: AZITHROMYCIN1 GM PO (07:56)
[2019-07-11 08:11] VITALS: BP 172/109
--- NOTE | 2019-07-11 08:30 | NUR ---
VERBAL ORDER RECIEVED FROM DR GRIJALVA;ER FOR CLONIDINE 0.1 PO PRN Q6 HRS FOR SBP >160, WILL CARRY OUT.
--- NOTE | 2019-07-11 08:40 | NUR ---
NORCO GIVEN PER EMAR FOR C/O 12/17 DAMON PAIN, WILL REASSESS.
[2019-07-11 10:08] VITALS: BP 145/77
--- NOTE | 2019-07-11 11:02 | NUR ---
RECEIVED CALL FROM KARLENE- COSMETIC ACCOUNT COORDINATOR AT [facility] WHO IS ASKING FOR HOME HEALTH ORDER DUE TO THE FACT THAT WILL BE BENEFICIAL FOR THE PATIENT. SPOKE WITH DR VILLAGOMEZ WHO GAVE TELEPHONE ORDER FOR HOME HEALTH NURSING EVAL. PER REPAIRER [employer] FREDERICK JACKSON TO FAX THE ORDER TO [facility] COSMETIC ACCOUNT COORDINATOR. PATIENT MADE AWARE ABOUT THE HOME HEALTH PLAN. PER KARLENE PATIENT CAN BE DC HOME AND HOME HEALTH WILL FOLLOW UP WITH PATIENT AFTER DISCHARGE.
--- NOTE | 2019-07-11 11:37 | NUR ---
PT STABLE FOR DISCHARGE PER MD ORDER. VS WNL AND NO DISTRESS NOTED. ALL DISCHARGE INSTRUCTIONS, EDUCATION, AND PRESCRIPTIONS GIVEN TO PT. PT VERBALIZES UNDERSTANDING. TELE BOX#10 RETURNED TO MT. IV REMOVED WITH CATHETER INTACT, NO REDNESS OR INFLAMMATION NOTED TO SITE. ID BAND REMOVED FROM PT ARM. MELINDA CALLED FOR PT BY CAPABILITY LEAD. PT ESCORTED DOWN TO LOBBY VIA WC BY SYBASE DEVELOPER WITH ALL PERSONAL BELONGINGS IN HAND.
== END 2019-07-11 11:39 | disposition home or self-care (01) | DRG 194 ==
LOC: ED 02:55 → DU 06:09
PROVIDERS: Emergency Medicine; Internal Medicine Pulmonary Disease; ADMIT Internal Medicine Pulmonary Disease
DX: J11.00 Influenza due to unidentified influenza virus with unspecified type of pneumonia (principal); E87.0 Hyperosmolality and hypernatremia; R09.02 Hypoxemia; E86.0 Dehydration; E87.6 Hypokalemia; I13.10 Hypertensive heart and chronic kidney disease without heart failure, with stage 1 through stage 4 chronic kidney disease, or unspecified chronic kidney disease; N18.9 Chronic kidney disease, unspecified; I25.10 Atherosclerotic heart disease of native coronary artery without angina pectoris; N20.0 Calculus of kidney; E78.5 Hyperlipidemia, unspecified; K58.9 Irritable bowel syndrome, unspecified; Z79.01 Long term (current) use of anticoagulants; Z95.5 Presence of coronary angioplasty implant and graft; Z68.29 Body mass index [BMI] 29.0-29.9, adult
CPT/HCPCS: 87804; 97116-GP; G0378; J0696; J1644; J3490; J7030; J7120; Q0092

== ENCOUNTER 2019-07-26 07:56 | Emergency (ER) | payer OTHER ==
[~2019-07-26] VITALS: Ht 152.4 cm; Wt 77.1 kg
[~2019-07-26 07:56] MED LIST changes: +AMLODIPINE BESYL5 M2 PO; +AZITHROMYCIN1 GM PO; +CELEBREX200 MG PO; +CYMBALTA30 M1 PO; +NITROGLYCERIN0.4 MG SL; +ONDANSETRON4 M3 PO; +TAM75 PO
[2019-07-26 08:04] VITALS: Ht 152.4 cm; Wt 77.1 kg
[2019-07-26 09:58] LABS: CALCIUM 9.2 mg/dL (8.5-10.1); CARBON DIOXIDE 24.6 mmol/L (21-32); CREATININE SERUM 1.3 mg/dL (0.6-1.0); POTASSIUM SERUM 3.5 mmol/L (3.5-5.1)
[2019-07-26 10:03] LABS: ALBUMIN 4.1 g/dL (3.4-5.0); BILIRUBIN TOTAL 0.5 mg/dL (0.20-1.00)
[2019-07-26 10:15] LABS: BASOPHIL % 0.2 % (0-2); PLATELET COUNT 350 x10^3mcL (130-400); RED CELL DISTRIBUTION WIDTH 14.6 % (11.5-14.5)
[2019-07-26 11:47] LABS: microscopic required? YES; urine erythrocyte 3+ (NEGATIVE)
[2019-07-26 12:53] LABS: AMPHETAMINE QUAL UR NONE DETECTED (See below)
[2019-07-26 13:45] VITALS: BP 196/104
== END 2019-07-26 14:25 | disposition home or self-care (01) ==
LOC: ED 07:56
PROVIDERS: Emergency Medicine
DX: R10.30 Lower abdominal pain, unspecified (principal); I25.810 Atherosclerosis of coronary artery bypass graft(s) without angina pectoris; I10 Essential (primary) hypertension; Z91.018 Allergy to other foods; Z90.49 Acquired absence of other specified parts of digestive tract
CPT/HCPCS: J0500; J1885; J7030

== ENCOUNTER 2019-08-06 13:07 | Emergency (ER) | payer OTHER ==
[~2019-08-06] VITALS: Ht 162.6 cm; Wt 77.1 kg
[2019-08-06 13:11] VITALS: Ht 162.6 cm; Wt 77.1 kg
[2019-08-06 13:45] VITALS: BP 152/93
== END 2019-08-06 13:45 | disposition home or self-care (01) ==
LOC: ED 13:07
DX: R10.30 Lower abdominal pain, unspecified (principal); G89.29 Other chronic pain; I10 Essential (primary) hypertension; Z90.89 Acquired absence of other organs; Z91.018 Allergy to other foods

== ENCOUNTER 2019-08-29 20:17 | Emergency (ER) | payer OTHER ==
[~2019-08-29] VITALS: Ht 162.6 cm; Wt 74.8 kg
[2019-08-29 20:24] VITALS: Ht 162.6 cm; Wt 74.8 kg
[2019-08-30 00:30] VITALS: BP 144/71
== END 2019-08-30 00:28 | disposition home or self-care (01) ==
LOC: ED 20:17
DX: M54.5 Low back pain (principal); R07.89 Other chest pain; S80.12XA Contusion of left lower leg, initial encounter; S80.11XA Contusion of right lower leg, initial encounter; E11.9 Type 2 diabetes mellitus without complications; I25.10 Atherosclerotic heart disease of native coronary artery without angina pectoris; W06.XXXA Fall from bed, initial encounter; Y93.89 Activity, other specified; Y99.8 Other external cause status; Y92.89 Other specified places as the place of occurrence of the external cause
CPT/HCPCS: J2270

== ENCOUNTER 2019-09-02 18:18 | Emergency (ER) | payer OTHER ==
[~2019-09-02] VITALS: Ht 162.6 cm; Wt 73.9 kg
[2019-09-02 18:25] VITALS: Ht 162.6 cm; Wt 73.9 kg
[2019-09-02 19:55] LABS: BASOPHIL % 0.9 % (0-2); PLATELET COUNT 310 x10^3mcL (130-400)
[2019-09-02 20:05] LABS: RED CELL DISTRIBUTION WIDTH 15.1 % (11.5-14.5)
[2019-09-02 20:13] LABS: CALCIUM 8.6 mg/dL (8.5-10.1); CREATININE SERUM 1.3 mg/dL (0.6-1.0); POTASSIUM SERUM 3.5 mmol/L (3.5-5.1)
[2019-09-02 20:18] LABS: ALBUMIN 3.5 g/dL (3.4-5.0); BILIRUBIN TOTAL 0.19 mg/dL (0.20-1.00)
[2019-09-02 23:05] VITALS: BP 138/86
== END 2019-09-02 23:05 | disposition home or self-care (01) ==
LOC: ED 18:18
PROVIDERS: Emergency Medicine
DX: R07.89 Other chest pain (principal); M79.10 Myalgia, unspecified site; I10 Essential (primary) hypertension; Z95.5 Presence of coronary angioplasty implant and graft; Z87.19 Personal history of other diseases of the digestive system
CPT/HCPCS: J2270; J2405; Q0092

== ENCOUNTER 2019-09-26 15:52 | Emergency (ER) | payer OTHER ==
[~2019-09-26] VITALS: Ht 162.6 cm; Wt 78.0 kg
[2019-09-26 16:03] VITALS: Ht 162.6 cm; Wt 78.0 kg
[2019-09-26 16:57] LABS: BASOPHIL % 0.2 % (0-2)
[2019-09-26 17:00] LABS: PLATELET COUNT 500 x10^3mcL (130-400); RED CELL DISTRIBUTION WIDTH 15.5 % (11.5-14.5)
[2019-09-26 22:18] VITALS: BP 165/85
[2019-09-26 23:47] LABS: CARBON DIOXIDE 27.8 mmol/L (21-32); POTASSIUM SERUM 4.1 mmol/L (3.5-5.1)
[2019-09-26 23:48] LABS: ALBUMIN 3.3 g/dL (3.4-5.0); BILIRUBIN TOTAL 0.14 mg/dL (0.20-1.00); CALCIUM 9.4 mg/dL (8.5-10.1); CREATININE SERUM 1.3 mg/dL (0.6-1.0); TOTAL PROTEIN, SERUM 6.8 g/dL (6.4-8.2)
== END 2019-09-26 22:18 | disposition home or self-care (01) ==
LOC: ED 15:52
PROVIDERS: Emergency Medicine
DX: S81.851A Open bite, right lower leg, initial encounter (principal); F17.210 Nicotine dependence, cigarettes, uncomplicated; W54.0XXA Bitten by dog, initial encounter; Y93.89 Activity, other specified; Y92.89 Other specified places as the place of occurrence of the external cause; Y99.8 Other external cause status
CPT/HCPCS: 99406; J2270; J2405; J2543; J7040; Q0092

== ENCOUNTER 2019-09-29 10:39 | Emergency (ER) | payer OTHER ==
[~2019-09-29] VITALS: Ht 162.6 cm; Wt 79.8 kg
[2019-09-29 10:46] VITALS: Ht 162.6 cm; Wt 79.8 kg
[2019-09-29 12:50] VITALS: BP 138/56
== END 2019-09-29 12:50 | disposition home or self-care (01) ==
LOC: ED 10:39
DX: S81.811D Laceration without foreign body, right lower leg, subsequent encounter (principal); I10 Essential (primary) hypertension; Z91.018 Allergy to other foods; Z98.890 Other specified postprocedural states; W54.0XXD Bitten by dog, subsequent encounter

== ENCOUNTER 2019-10-02 10:11 | Emergency (ER) | payer OTHER ==
[~2019-10-02] VITALS: Ht 162.6 cm; Wt 83.5 kg
[2019-10-02 10:23] VITALS: Ht 162.6 cm; Wt 83.5 kg
[2019-10-02 10:48] LABS: BASOPHIL % 0.5 % (0-2)
[2019-10-02 10:53] LABS: CALCIUM 9.2 mg/dL (8.5-10.1); CARBON DIOXIDE 28.6 mmol/L (21-32); CREATININE SERUM 1.2 mg/dL (0.6-1.0); POTASSIUM SERUM 3.6 mmol/L (3.5-5.1)
[2019-10-02 10:55] LABS: PLATELET COUNT 523 x10^3mcL (130-400); RED CELL DISTRIBUTION WIDTH 15.8 % (11.5-14.5)
[2019-10-02 10:57] LABS: ALBUMIN 3.6 g/dL (3.4-5.0); BILIRUBIN TOTAL 0.22 mg/dL (0.20-1.00); TOTAL PROTEIN, SERUM 7.5 g/dL (6.4-8.2)
[2019-10-02 12:45] VITALS: BP 140/89
== END 2019-10-02 12:45 | disposition home or self-care (01) ==
LOC: ED 10:11
PROVIDERS: Emergency Medicine
DX: L03.115 Cellulitis of right lower limb (principal); I10 Essential (primary) hypertension; Z90.89 Acquired absence of other organs; Z91.018 Allergy to other foods
CPT/HCPCS: J1885; J2543; J7030

== ENCOUNTER 2019-10-06 21:56 | Emergency (ER) | payer OTHER ==
[~2019-10-06] VITALS: Ht 162.6 cm; Wt 78.5 kg
[2019-10-06 21:59] VITALS: Ht 162.6 cm; Wt 78.5 kg
[2019-10-06 23:36] LABS: BASOPHIL % 0.3 % (0-2)
[2019-10-06 23:40] LABS: PLATELET COUNT 446 x10^3mcL (130-400)
[2019-10-06 23:57] LABS: ALBUMIN 3.5 g/dL (3.4-5.0); BILIRUBIN TOTAL 0.2 mg/dL (0.20-1.00); CALCIUM 8.9 mg/dL (8.5-10.1); CARBON DIOXIDE 26.2 mmol/L (21-32); CREATININE SERUM 1.5 mg/dL (0.6-1.0); POTASSIUM SERUM 3.6 mmol/L (3.5-5.1); TOTAL PROTEIN, SERUM 6.9 g/dL (6.4-8.2)
[2019-10-07 01:00] VITALS: BP 134/82
== END 2019-10-07 01:00 | disposition home or self-care (01) ==
LOC: ED 21:56
PROVIDERS: Emergency Medicine
DX: R10.32 Left lower quadrant pain (principal); R19.7 Diarrhea, unspecified; I10 Essential (primary) hypertension; Z90.89 Acquired absence of other organs; Z91.018 Allergy to other foods
CPT/HCPCS: J2270; J2405; J7030

== ENCOUNTER 2019-12-15 16:29 | Emergency (ER) | payer OTHER ==
[~2019-12-15] VITALS: Ht 162.6 cm; Wt 78.0 kg
[2019-12-15 16:48] VITALS: Ht 162.6 cm; Wt 78.0 kg
[2019-12-15 19:09] LABS: CALCIUM 9.9 mg/dL (8.5-10.1); CARBON DIOXIDE 25.4 mmol/L (21-32); CHLORIDE SERUM 102 mmol/L (98-107); CREATININE SERUM 1.8 mg/dL (0.6-1.0); GLUCOSE SERUM 141 mg/dL (74-106); POTASSIUM SERUM 3.7 mmol/L (3.5-5.1); SODIUM SERUM 139 mmol/L (136-145)
[2019-12-15 19:10] LABS: BASOPHIL % 0.3 % (0-2)
[2019-12-15 19:12] LABS: PLATELET COUNT 412 x10^3mcL (130-400); RED CELL DISTRIBUTION WIDTH 16.9 % (11.5-14.5)
[2019-12-15 19:13] LABS: ALBUMIN 4.5 g/dL (3.4-5.0); ALKALINE PHOSPHATASE 98 U/L (46-116); ALT/SGPT 58 U/L (14-59); AST/SGOT 40 U/L (15-37); BILIRUBIN TOTAL 0.29 mg/dL (0.20-1.00); LIPASE 120 IU/L (73-393); MAGNESIUM 2.7 mg/dL (1.8-2.4); TOTAL PROTEIN, SERUM 8.2 g/dL (6.4-8.2)
[2019-12-15 20:25] LABS: UA SPECIFIC GRAVITY 1.015 (1.005-1.035); microscopic required? YES; urine erythrocyte NEGATIVE (NEGATIVE)
[2019-12-15 23:06] VITALS: BP 181/94
== END 2019-12-15 23:06 | disposition home or self-care (01) ==
LOC: ED 16:29
PROVIDERS: Emergency Medicine
DX: K57.32 Diverticulitis of large intestine without perforation or abscess without bleeding (principal); I10 Essential (primary) hypertension; K58.9 Irritable bowel syndrome, unspecified; Z90.49 Acquired absence of other specified parts of digestive tract; Z98.890 Other specified postprocedural states; Z91.018 Allergy to other foods
CPT/HCPCS: J1885; Q0092

== ENCOUNTER 2019-12-26 00:11 | Emergency (ER) | payer OTHER ==
[~2019-12-26] VITALS: Ht 162.6 cm; Wt 78.0 kg
[2019-12-26 00:16] VITALS: Ht 162.6 cm; Wt 78.0 kg
[2019-12-26 01:52] LABS: BASOPHIL % 0.4 % (0-2); PLATELET COUNT 358 x10^3mcL (130-400)
[2019-12-26 01:53] LABS: RED CELL DISTRIBUTION WIDTH 17.3 % (11.5-14.5)
[2019-12-26] MEDS ORDERED: COZAAR25 M1 PO (02:01)
[2019-12-26 02:07] LABS: CALCIUM 9.1 mg/dL (8.5-10.1); CARBON DIOXIDE 28.2 mmol/L (21-32); CHLORIDE SERUM 99 mmol/L (98-107); CREATININE SERUM 1.3 mg/dL (0.6-1.0); GLUCOSE SERUM 129 mg/dL (74-106); POTASSIUM SERUM 3.7 mmol/L (3.5-5.1); SODIUM SERUM 135 mmol/L (136-145)
[2019-12-26 02:11] LABS: ALKALINE PHOSPHATASE 93 U/L (46-116); ALT/SGPT 60 U/L (14-59); AMYLASE 26 U/L (25-115); AST/SGOT 42 U/L (15-37); BILIRUBIN TOTAL 0.42 mg/dL (0.20-1.00); LIPASE 43 IU/L (73-393); TOTAL PROTEIN, SERUM 7.8 g/dL (6.4-8.2)
[2019-12-26 05:34] VITALS: BP 149/80
== END 2019-12-26 05:35 | disposition home or self-care (01) ==
LOC: ED 00:11
PROVIDERS: Student in an Organized Health Care Education/Training Program
DX: K57.92 Diverticulitis of intestine, part unspecified, without perforation or abscess without bleeding (principal); D72.829 Elevated white blood cell count, unspecified; I10 Essential (primary) hypertension; Z90.89 Acquired absence of other organs; Z91.018 Allergy to other foods
CPT/HCPCS: J0360; J0696; J2270; J2405; J3490; Q9967

== ENCOUNTER 2019-12-27 16:48 | Emergency (ER) | payer OTHER ==
[~2019-12-27] VITALS: Ht 162.6 cm; Wt 76.2 kg
[~2019-12-27 16:48] MED LIST changes: +COZAAR25 M1 PO
[2019-12-27 16:55] VITALS: Ht 162.6 cm; Wt 76.2 kg
[2019-12-27 19:55] LABS: BASOPHIL % 0.2 % (0-2); PLATELET COUNT 319 x10^3mcL (130-400)
[2019-12-27 19:56] LABS: RED CELL DISTRIBUTION WIDTH 16.9 % (11.5-14.5)
[2019-12-27 20:20] LABS: CALCIUM 8.7 mg/dL (8.5-10.1); CARBON DIOXIDE 25.1 mmol/L (21-32); CHLORIDE SERUM 99 mmol/L (98-107); CREATININE SERUM 1.3 mg/dL (0.6-1.0); GLUCOSE SERUM 106 mg/dL (74-106); POTASSIUM SERUM 3.4 mmol/L (3.5-5.1); SODIUM SERUM 137 mmol/L (136-145)
[2019-12-27 20:21] LABS: LIPASE 54 IU/L (73-393)
[2019-12-27 21:11] LABS: microscopic required? NO
[2019-12-27 21:31] LABS: UA SPECIFIC GRAVITY 1.015 (1.005-1.035); urine erythrocyte NEGATIVE (NEGATIVE)
[2019-12-28 00:13] VITALS: BP 188/91
== END 2019-12-28 00:13 | disposition short-term general hospital (02) ==
LOC: ED 16:48
PROVIDERS: Emergency Medicine
DX: K57.90 Diverticulosis of intestine, part unspecified, without perforation or abscess without bleeding (principal); I10 Essential (primary) hypertension; R50.9 Fever, unspecified; E78.00 Pure hypercholesterolemia, unspecified; Z98.61 Coronary angioplasty status; Z90.89 Acquired absence of other organs; Z91.018 Allergy to other foods
CPT/HCPCS: 82962; J0295; J1885; J3490; J7030; Q0092

== ENCOUNTER 2020-01-04 15:59 | Inpatient (IN) | payer OTHER ==
[~2020-01-04] VITALS: Ht 162.6 cm; Wt 75.7 kg
[2020-01-04 16:16] VITALS: Ht 162.6 cm; Wt 75.7 kg
--- NOTE | 2020-01-04 16:21 | NUR ---
EKG IN PROGRESS
--- NOTE | 2020-01-04 16:40 | NUR ---
ASSUMED CARE OF PT AT THIS TIME. PT BIBA C/O LLQ ABD PAIN X4 DAYS WITH NAUSEA AND DIARRHEA. PT REPORTS "THE PAIN WAS SO BAD EARLIER I PASSED OUT TWICE", PT STS SYNCOPAL EPISODES WERE UNWITNESSED SHE "LIVES ALONE". CALL LIGHT WITHIN REACH, BED IN LOWEST/LOCKED POSITION.
--- NOTE | 2020-01-04 17:12 | NUR ---
PT MEDICATED PER EMAR, PLEASE SEE EMAR.
[2020-01-04 17:27] LABS: BASOPHIL % 0.1 % (0-2); PLATELET COUNT 399 x10^3mcL (130-400)
[2020-01-04 17:34] LABS: RED CELL DISTRIBUTION WIDTH 18.2 % (11.5-14.5)
[2020-01-04 17:45] LABS: ALKALINE PHOSPHATASE 73 U/L (46-116); ALT/SGPT 23 U/L (14-59); AST/SGOT 13 U/L (15-37); CALCIUM 9.3 mg/dL (8.5-10.1); CARBON DIOXIDE 27.9 mmol/L (21-32); CHLORIDE SERUM 98 mmol/L (98-107); CREATININE SERUM 1.3 mg/dL (0.6-1.0); GLUCOSE SERUM 142 mg/dL (74-106); LIPASE 41 IU/L (73-393); SODIUM SERUM 138 mmol/L (136-145); TOTAL PROTEIN, SERUM 7.5 g/dL (6.4-8.2)
[2020-01-04 17:49] LABS: POTASSIUM SERUM 2.5 mmol/L (3.5-5.1)
--- NOTE | 2020-01-04 18:11 | NUR ---
PT ASSISTED ONTO BEDSIDE COMMODE TO PROVIDE A CLEAN CATCH URINE SAMPLE, URINE DIP RESULTS REPORTED TO DR ARZATE.
[2020-01-04 18:32] LABS: microscopic required? YES; urine erythrocyte NEGATIVE (NEGATIVE)
--- NOTE | 2020-01-04 19:10 | NUR ---
REPORT GIVEN TO LEYLA TONY TO ASSUME CARE OF PT.
--- NOTE | 2020-01-04 19:25 | NUR ---
RECEIVED REPORT FROM ANCELMO MAYER. I WILL ASSUME CARE OF PT AT THIS TIME. PT IS AAOX4, NAD NOTED. PT HAS IV FLUIDS RUNNING, SEE EMAR FOR DETAILS. PT ON CM, VSS. WILL CONTINUE TO MONITOR PT AT THIS TIME.
--- NOTE | 2020-01-04 20:36 | NUR ---
GAVE HANDOFF REPORT TO SALLIE FOR RM 251B, SHE WILL ASSUME CARE OF PT AT COMPLETION OF TRANSFER.
--- NOTE | 2020-01-04 22:15 | NUR ---
RECEEIVED PT FROM ER VIA WISAMRMIKAEL ACCOMPANIED BY ER NURSE. PT. IS AWAKE, ALAERT, ORIENTED X4. DENIES HEADCHE OR DIZZINESS. BREATH SOUNDS CLEAR THROUGHOUT LUNG FULLER, RESP. EVEN, UNLABORED. NO SOB NOTED. PT ON RA. O2 SAT 98%. ABD. SOFT AND ROUNDS, BOWEL SOUNDS ACTIVE. DENIES ANY ABD PAIN PRESENTLY. PT. MEDICATED PRIOR IN ER. DENIES NAUSEA. SKIN APPEARS CDI THROUGHOUT. NO EDEMA NOTED TO EXTREMITIES. IV TO LFA. IV POTASSIUM STARTED FROM ER, 20 MEQ KCL RIDER INFUSION RESTARTED. MRSA SWAB COMPLETED PER PROTOCOL. PT. GIVEN NIGHT SNACK. CALL LIGHT WITHIN REACH.
--- NOTE | 2020-01-04 22:34 | NUR ---
SPOKE WITH ANTONIO, BEAM RACKER , FROM [facility]. JIRA DEVELOPER WAS FOLLOWING UP WITH PATIENT SINCE HER ADMISSION AND DISCHARGE FROM [facility]. PER JIRA DEVELOPER, THEY WERE TRYING TO PREVENT ANOTHER READMISSION TO HOSPITAL FOR THE PATIENT. THEY WERE ALSO IN THE PROCESS OF SENDING OUT A MARKING ROOM SUPERVISOR TO HER HOME TO CHECK ON HER LIVING CONDITIONS, WHICH WAS NOT COMPLETED SINCE THE PATIENT WAS ADMITTED HERE.
[2020-01-04 22:55] VITALS: BP 191/94
[2020-01-05 05:07] VITALS: BP 137/70
--- NOTE | 2020-01-05 06:31 | NUR ---
PT, SLEPT WELL THROUGHOUT THE NIGHT. NO C/O PAIN THIS MORNING OR REQUEST FOR PAIN MEDICATION. IV REMAINS HEPLOCKED, PATENT. CALL LIGHT WITHIN REACH. WILL ENDORSE PT. CARE TO INCOMING NURSE.
[2020-01-05 06:55] LABS: BASOPHIL % 0.4 % (0-2); PLATELET COUNT 342 x10^3mcL (130-400)
[2020-01-05 06:59] LABS: CALCIUM 8.4 mg/dL (8.5-10.1); CARBON DIOXIDE 28.3 mmol/L (21-32); CHLORIDE SERUM 105 mmol/L (98-107); CREATININE SERUM 1.4 mg/dL (0.6-1.0); GLUCOSE SERUM 113 mg/dL (74-106); POTASSIUM SERUM 3.4 mmol/L (3.5-5.1); SODIUM SERUM 142 mmol/L (136-145)
[2020-01-05 07:16] LABS: RED CELL DISTRIBUTION WIDTH 18.7 % (11.5-14.5)
--- NOTE | 2020-01-05 07:40 | NUR ---
RECEIVED PATIENT FORMPM NURSE, ALERT AND ORIENTED X 4, ABLE TO VERBALZIE NEEDS, NO C/O PAIN OR DISCOMFORT, LUNG SOUNDS CLEAR ON RA, GENARLIZED WEAKNESS, ABLE TO AMBULATE TO BEDSIDE COMMODE, IV IN LFA PATENT AND INFUSING NS @ 20ML/HR, ON TELEMTRY NSR 70, DENIES CHEST PAIN, BOWEL SOUNDS ACTIVE, LAST BM 01/03, SKIN INTACT, PEDAL PULSES EQUAL AND STRONG, NO EDEMA NOTED, CONTINENT OF BLADDER AND BOWEL, PATIENT CALM AND COOPERATIVE TO CARE
[2020-01-05 08:25] VITALS: BP 169/77
--- NOTE | 2020-01-05 09:10 | NUR ---
PATIENT C/O 6/10 PAIN IN ABDOMEN, WILL ADMINISTER NORCO PER EMAR,
--- NOTE | 2020-01-05 10:10 | NUR ---
PATIENT REPORTS PAIN IS NOW 2/10 WILL CONTINUE TO MONITOR
--- NOTE | 2020-01-05 10:45 | NUR ---
PATIENT REPORTS 8/10 PAIN IN ABDOMEN, ORDERS OBTAINED FROM MD FOR MORPHINEVIA IVP WILL ADMINISTER TO PAITIENT PER EMAR
--- NOTE | 2020-01-05 11:00 | NUR ---
PATIENT K+ 3.4, ADMINSTERED 40 MEQ PER EMAR
--- NOTE | 2020-01-05 12:00 | NUR ---
PATIENT REPORTS PAIN IS RESOLVED, WILL CONTINUE TO MONITOR,
[2020-01-05 12:41] VITALS: BP 135/63
[2020-01-05 16:43] VITALS: BP 117/44
--- NOTE | 2020-01-05 17:00 | NUR ---
PATIENT REPORTS LOOSE BM X 3 TODAY, TELEPHONE CALL EARLIER TO MD, DECLINES TO GIVE PATIENT ANTIDIARRHEAL
--- NOTE | 2020-01-05 18:00 | NUR ---
PATIENT C/O RIGHT SHOULDER PAIN, HEAT PACK APPLIED
--- NOTE | 2020-01-05 19:02 | NUR ---
PATIENT RESTING COMFORTABLY IN BED, NO S/SX OF DISTRESS OR DSICOMFORT AT THIS TIME, WILL ENDORSE CARE TO PM NURSE
[2020-01-05 20:15] VITALS: BP 147/76
--- NOTE | 2020-01-05 22:32 | NUR ---
PATIENT RECEIVED AWAKE, ALERT, ORIENTED X4 IN BED. RESPIRATION EVEN AND UNLABORED. IV SITE TO L FOREARM PATENT AND INTACT. C/O ABDOMINAL PAIN, 02/17. MEDICATED WITH MORPHINE SULFTATE 4 MG IVP ORDERED. VERBALIZED SHE HAS A DIARRHEA WHENEVER SHE URINATES. VOIDING FREELY WITHOUT DIFFICULTY. AMBULATOERY. SKIN DRY AND INTACT. ON TELE #14. WILL CONTINUE TO MONITOR.
[2020-01-06 05:15] VITALS: BP 182/91
[2020-01-06 06:32] LABS: BASOPHIL % 0.4 % (0-2); PLATELET COUNT 284 x10^3mcL (130-400)
[2020-01-06 06:35] LABS: RED CELL DISTRIBUTION WIDTH 18.1 % (11.5-14.5)
--- NOTE | 2020-01-06 06:35 | NUR ---
PATIENT RESTING IN BED. RESPIRATION EVEN AND UNLABORED, ON ROOM AIR. COMPLAINED OF ABDOMINAL PAIN, 8/10. MEDICATED WITH MORPHINE SULFATE 4 MG IVP ORDERED. IV SITE NO SIGN OF INFILTRATION. ASSISTED WITH NEEDS. SAFETY OBSERVED. PLACED BED IN THE LOWEST POSITION. PLACED CALL LIGHT WITHIN REACH AT ALL TIMES.
[2020-01-06 06:55] LABS: CALCIUM 8.5 mg/dL (8.5-10.1); CARBON DIOXIDE 28.1 mmol/L (21-32); CHLORIDE SERUM 104 mmol/L (98-107); CREATININE SERUM 1.2 mg/dL (0.6-1.0); GLUCOSE SERUM 117 mg/dL (74-106); MAGNESIUM 1.9 mg/dL (1.8-2.4); POTASSIUM SERUM 3.8 mmol/L (3.5-5.1); SODIUM SERUM 138 mmol/L (136-145)
[2020-01-06 07:00] VITALS: BP 179/98
--- NOTE | 2020-01-06 07:10 | NUR ---
RECEIVED PT FROM DRIVER SALESMAN RN. AOX4 ABLE TO MAKE NEEDS KNOWN, DENIES DAMON/DIZZINESS. RESP E/U, DENIES SOB/COUGH, ON RA, LUNGS CTA. ABDOMEN SOFT/ROUND, DENIES N/V/D, DENIES ABDOMINAL PAIN AT THE TIME, PT STATES SHE WAS JUST GIVEN MORPHINE. VOIDS FREELY, AMBULATES WITH MILD WEAKNESS NOTED. SKIN INTACT. IV TO LFA PATENT. CALL LIGHT IN REACH, WILL CONTINUE TO MONITOR.
[2020-01-06 08:41] VITALS: BP 178/99
[2020-01-06] MEDS ORDERED: CIPRO500 MG PO (09:44)
[2020-01-06] MEDS ORDERED: FLAGYL500 MG PO (09:45)
[2020-01-06 11:15] VITALS: BP 178/99
[2020-01-06 12:27] VITALS: BP 173/93
--- NOTE | 2020-01-06 20:00 | NUR ---
RECEIVED PT WITH HOB ELEVATED. PT AAOX4. BREATHING IS EVEN AND UNLABORED ON RA. NO RESP DISTRESS NOTED. DENIES ANY PAIN AT THIS TIME. IV TO LFA PATENT AND INTACT. NO ERYTHEMA NOTED. PT UPSET D/T NOT BEING D/C'D HOME. WILL FOLLOW UP WITH CASE MANAGEMENT.
--- NOTE | 2020-01-06 20:15 | NUR ---
CLARIFIED WITH LASHAY- LABEL OPERATOR IF PATIENT CAN GO HOME TONIGHT SINCE SHE HAS DISCHARGE ORDER AND SHE SAID PATIENT CAN GO HOME ORDERED,PRIMARY NURSE MADE AWARE
[2020-01-06 20:25] VITALS: BP 189/107
--- NOTE | 2020-01-06 20:25 | NUR ---
ADMINSTERED NORCO PRN PER MAR ORDER FOR PTS ABD PAIN. WILL REASSESS AND CHECK EFFECTIVENESS.
--- NOTE | 2020-01-06 20:30 | NUR ---
INFORMED PT ABOUT DISCHARGE TONIGHT AFTER GETTING CLARIFICATION FROM PADILLA HIDALGO. PT AGREEABLE, BUT STATED SHE WANT TO TAKE HER AMBIEN PRIOR TO GETTING DISCHAGED. EDUCATED PT ABOUT MEDICATION AND HOW IT IS UNSAFE FOR HER TO TAKE AFTER DISCHARGE. PT STATED SHE WILL BE STAYING THE NIGHT THEN. EDUCATED THE PT ABOUT WHAT WOULD HAPPEN REGARDING HER STAYING AFTER DISCHARGE ORDERS ARE IN, STATED SHE DOES NOT CARE AND SHE WILL STAY TO TAKE HER AMBIEN. WILL MAKE CHRISTIANE, CHARGE NURSE AWARE.
--- NOTE | 2020-01-06 20:32 | NUR ---
CHARGE NURSE, CHRISTIANE IN TO SPEAK WITH PT. PT STATED "I AM NOT REFUSING DISCHARGE, BUT I AM STAYING TO GET MY AMBIEN". WILL MAKE DR LYNCH AWARE.
--- NOTE | 2020-01-06 20:55 | NUR ---
DR LYNCH AWARE OF PT REFUSING DISCHARGE. STATED "IT IS HER DECISION, BUT IT IS NOT SAFE TO ADMINISTER AMBIEN PRIOR TO DISCHARGE". WILL CONTINUE TO MONITOR.
--- NOTE | 2020-01-06 21:15 | NUR ---
CASE MANAGEMENT FROM [facility] ON PHONE TO SPEAK WITH PATIENT AT THIS TIME.
--- NOTE | 2020-01-06 21:20 | NUR ---
PER REGAL, PT WILL BE LEAVING TONIGHT. WILL MAKE MANAGER FIBER AWARE TO GET PT VOUCHER FOR TAXI.
--- NOTE | 2020-01-06 21:57 | NUR ---
I HERE TO DIRECTOR OF RADIOLOGY PT. REMOVED IV WITH CATHETER INTACT, BELONGINGS WITH PT. BROUGHT DOWN TO ED LOBBY VIA WHEELCHAIR WITH ABLA.
== END 2020-01-06 22:15 | disposition home or self-care (01) | DRG 392 ==
LOC: ED 15:59 → DU 19:49
PROVIDERS: Emergency Medicine; ADMIT Internal Medicine Pulmonary Disease; ATTEND Internal Medicine Pulmonary Disease
DX: K58.1 Irritable bowel syndrome with constipation (principal); K57.92 Diverticulitis of intestine, part unspecified, without perforation or abscess without bleeding; E87.6 Hypokalemia; K58.9 Irritable bowel syndrome, unspecified; R55 Syncope and collapse; I25.10 Atherosclerotic heart disease of native coronary artery without angina pectoris; G89.29 Other chronic pain; R10.9 Unspecified abdominal pain; I10 Essential (primary) hypertension; Z79.82 Long term (current) use of aspirin; Z88.8 Allergy status to other drugs, medicaments and biological substances; Z90.49 Acquired absence of other specified parts of digestive tract; Z79.899 Other long term (current) drug therapy
CPT/HCPCS: 83880; G0378; J0744; J1650; J2270; J2405; J3010; J3480; J3490; J7030; J7050; Q0092

== ENCOUNTER 2020-01-13 16:24 | Emergency (ER) | payer OTHER ==
[~2020-01-13] VITALS: Ht 162.6 cm; Wt 75.7 kg
[~2020-01-13 16:24] MED LIST changes: +APR50 PO; +BUTRANS15 MCG/HR TOP; +NORVASC5 MG PO; +TOPROL XL50 MG PO; +VANCOCIN125 MG PO
[2020-01-13 16:32] VITALS: Ht 162.6 cm; Wt 75.7 kg
[2020-01-13 17:29] LABS: CALCIUM 8.9 mg/dL (8.5-10.1); CARBON DIOXIDE 25.8 mmol/L (21-32); CHLORIDE SERUM 99 mmol/L (98-107); CREATININE SERUM 1.5 mg/dL (0.6-1.0); GLUCOSE SERUM 123 mg/dL (74-106); POTASSIUM SERUM 3.5 mmol/L (3.5-5.1); SODIUM SERUM 136 mmol/L (136-145)
[2020-01-13 17:31] LABS: BASOPHIL % 0.2 % (0-2); PLATELET COUNT 293 x10^3mcL (130-400); RED CELL DISTRIBUTION WIDTH 18.7 % (11.5-14.5)
[2020-01-13 17:34] LABS: ALBUMIN 3.7 g/dL (3.4-5.0); ALKALINE PHOSPHATASE 63 U/L (46-116); ALT/SGPT 21 U/L (14-59); AST/SGOT 18 U/L (15-37); BILIRUBIN TOTAL 0.5 mg/dL (0.20-1.00); TOTAL PROTEIN, SERUM 7.2 g/dL (6.4-8.2)
[2020-01-13 19:36] VITALS: BP 166/100
== END 2020-01-13 19:36 | disposition home or self-care (01) ==
LOC: ED 16:24
PROVIDERS: Specialist
DX: R42 Dizziness and giddiness (principal); G89.29 Other chronic pain; R10.9 Unspecified abdominal pain
CPT/HCPCS: J1885; J7030; Q0092

== ENCOUNTER 2020-02-08 02:49 | Emergency (ER) | payer OTHER ==
[~2020-02-08] VITALS: Ht 162.6 cm; Wt 74.8 kg
[~2020-02-08 02:49] MED LIST changes: +LOSARTAN POTAS100 M1 PO
[2020-02-08 02:52] VITALS: Ht 162.6 cm; Wt 74.8 kg
[2020-02-08 04:09] LABS: PLATELET COUNT 368 x10^3mcL (130-400); RED CELL DISTRIBUTION WIDTH 18.6 % (11.5-14.5)
[2020-02-08 04:23] LABS: CALCIUM 9.6 mg/dL (8.5-10.1); CARBON DIOXIDE 26.8 mmol/L (21-32); CHLORIDE SERUM 102 mmol/L (98-107); CREATININE SERUM 1.4 mg/dL (0.6-1.0); GLUCOSE SERUM 108 mg/dL (74-106); POTASSIUM SERUM 4.2 mmol/L (3.5-5.1); SODIUM SERUM 139 mmol/L (136-145)
[2020-02-08 04:28] LABS: ALBUMIN 3.8 g/dL (3.4-5.0); ALKALINE PHOSPHATASE 86 U/L (46-116); ALT/SGPT 33 U/L (14-59); AMYLASE 72 U/L (25-115); AST/SGOT 22 U/L (15-37); BILIRUBIN TOTAL 0.3 mg/dL (0.20-1.00); LIPASE 118 IU/L (73-393); TOTAL PROTEIN, SERUM 7.8 g/dL (6.4-8.2)
[2020-02-08 08:41] VITALS: BP 158/76
== END 2020-02-08 08:41 | disposition home or self-care (01) ==
LOC: ED 02:49
PROVIDERS: Emergency Medicine
DX: K59.00 Constipation, unspecified (principal); R55 Syncope and collapse; I10 Essential (primary) hypertension; Z90.89 Acquired absence of other organs; Z98.890 Other specified postprocedural states; Z91.018 Allergy to other foods
CPT/HCPCS: J2270; J2405; J7030; Q0163

== ENCOUNTER 2020-03-02 02:27 | Emergency (ER) | payer OTHER ==
[~2020-03-02] VITALS: Ht 162.6 cm; Wt 84.0 kg
[~2020-03-02 02:27] MED LIST changes: +NEXIUM2.5 MG/Pa1 PO
[2020-03-02 04:05] VITALS: BP 161/75
== END 2020-03-02 04:05 | disposition home or self-care (01) ==
LOC: ED 02:27
DX: R10.9 Unspecified abdominal pain (principal); G89.29 Other chronic pain; I10 Essential (primary) hypertension; Z98.890 Other specified postprocedural states; Z91.018 Allergy to other foods
CPT/HCPCS: J0500; J2270; J2405

== ENCOUNTER 2020-03-05 23:35 | Emergency (ER) | payer OTHER ==
[~2020-03-05] VITALS: Ht 162.6 cm; Wt 76.7 kg
[2020-03-05 23:43] VITALS: Ht 162.6 cm; Wt 76.7 kg
[2020-03-06 05:48] VITALS: BP 178/77
== END 2020-03-06 05:48 | disposition home or self-care (01) ==
LOC: ED 23:35
DX: G89.29 Other chronic pain (principal); R10.9 Unspecified abdominal pain; I10 Essential (primary) hypertension; Z91.018 Allergy to other foods

== ENCOUNTER 2020-04-08 22:45 | Emergency (ER) | payer OTHER ==
[~2020-04-08] VITALS: Ht 162.6 cm; Wt 86.3 kg
[2020-04-08 23:06] VITALS: Ht 162.6 cm; Wt 86.3 kg
[2020-04-09 00:13] LABS: BASOPHIL % 0.4 % (0-2); PLATELET COUNT 317 x10^3mcL (130-400)
[2020-04-09 00:14] LABS: RED CELL DISTRIBUTION WIDTH 15.9 % (11.5-14.5)
[2020-04-09 00:25] LABS: CALCIUM 9.4 mg/dL (8.5-10.1); CHLORIDE SERUM 103 mmol/L (98-107); CREATININE SERUM 1.4 mg/dL (0.6-1.0); GLUCOSE SERUM 113 mg/dL (74-106); POTASSIUM SERUM 3.9 mmol/L (3.5-5.1); SODIUM SERUM 137 mmol/L (136-145)
[2020-04-09 00:30] LABS: ALBUMIN 3.8 g/dL (3.4-5.0); ALKALINE PHOSPHATASE 82 U/L (46-116); ALT/SGPT 24 U/L (14-59); AST/SGOT 23 U/L (15-37); BILIRUBIN TOTAL 0.2 mg/dL (0.20-1.00); LIPASE 68 IU/L (73-393); TOTAL PROTEIN, SERUM 7.4 g/dL (6.4-8.2)
[2020-04-09 01:45] VITALS: BP 168/93
== END 2020-04-09 01:45 | disposition home or self-care (01) ==
LOC: ED 22:45
PROVIDERS: Emergency Medicine
DX: G89.29 Other chronic pain (principal); R10.32 Left lower quadrant pain; I10 Essential (primary) hypertension; Z90.49 Acquired absence of other specified parts of digestive tract; Z88.8 Allergy status to other drugs, medicaments and biological substances
CPT/HCPCS: J0500; J1885; J2270; J2405; J3490

== ENCOUNTER 2020-04-22 11:12 | Emergency (ER) | payer OTHER ==
[~2020-04-22] VITALS: Ht 162.6 cm; Wt 83.5 kg
[2020-04-22 11:18] VITALS: Ht 162.6 cm; Wt 83.5 kg
[2020-04-22 12:08] LABS: BASOPHIL % 0.3 % (0-2); PLATELET COUNT 336 x10^3mcL (130-400)
[2020-04-22 12:26] LABS: CALCIUM 9.1 mg/dL (8.5-10.1); CARBON DIOXIDE 24.7 mmol/L (21-32); CHLORIDE SERUM 99 mmol/L (98-107); CREATININE SERUM 1.3 mg/dL (0.6-1.0); GLUCOSE SERUM 119 mg/dL (74-106); POTASSIUM SERUM 3.5 mmol/L (3.5-5.1); SODIUM SERUM 135 mmol/L (136-145)
[2020-04-22 12:30] LABS: ALBUMIN 3.9 g/dL (3.4-5.0); ALKALINE PHOSPHATASE 83 U/L (46-116); ALT/SGPT 59 U/L (14-59); AST/SGOT 28 U/L (15-37); BILIRUBIN TOTAL 0.33 mg/dL (0.20-1.00); LIPASE 61 IU/L (73-393); TOTAL PROTEIN, SERUM 7.8 g/dL (6.4-8.2)
[2020-04-22 15:17] VITALS: BP 169/100
== END 2020-04-22 15:17 | disposition home or self-care (01) ==
LOC: ED 11:12
PROVIDERS: Emergency Medicine
DX: R10.9 Unspecified abdominal pain (principal); G89.29 Other chronic pain; R06.00 Dyspnea, unspecified; I10 Essential (primary) hypertension; Z98.890 Other specified postprocedural states; Z90.89 Acquired absence of other organs; Z91.018 Allergy to other foods
CPT/HCPCS: 83880; J3490; J7030

== ENCOUNTER 2020-04-22 19:46 | Observation (INO) | payer OTHER ==
[~2020-04-22] VITALS: Ht 162.6 cm; Wt 84.8 kg
[2020-04-22 19:56] VITALS: Ht 162.6 cm; Wt 84.8 kg
--- NOTE | 2020-04-22 20:22 | NUR ---
MEDICATED PT FOR VOMITING. PLEASE SEE EMAR.
[2020-04-22 21:58] LABS: CALCIUM 9.1 mg/dL (8.5-10.1); CARBON DIOXIDE 29.4 mmol/L (21-32); CHLORIDE SERUM 102 mmol/L (98-107); CREATININE SERUM 1.3 mg/dL (0.6-1.0); GLUCOSE SERUM 107 mg/dL (74-106); POTASSIUM SERUM 4.1 mmol/L (3.5-5.1); SODIUM SERUM 137 mmol/L (136-145)
[2020-04-22 22:02] LABS: ALBUMIN 3.8 g/dL (3.4-5.0); ALKALINE PHOSPHATASE 82 U/L (46-116); ALT/SGPT 51 U/L (14-59); AMYLASE 29 U/L (25-115); AST/SGOT 24 U/L (15-37); BILIRUBIN TOTAL 0.3 mg/dL (0.20-1.00); LIPASE 57 IU/L (73-393); TOTAL PROTEIN, SERUM 7.4 g/dL (6.4-8.2)
[2020-04-22 22:10] LABS: BASOPHIL % 0.3 % (0-2); PLATELET COUNT 340 x10^3mcL (130-400)
[2020-04-22 22:11] LABS: RED CELL DISTRIBUTION WIDTH 16.1 % (11.5-14.5)
--- NOTE | 2020-04-22 22:55 | NUR ---
first encounter with pt. who was seen and treated earlier in er and came back with smae symptom.
--- NOTE | 2020-04-22 23:33 | NUR ---
PT. GOT UP AND AMBULATED TO BATHROOM WITHOUT DIFFICULTY.
--- NOTE | 2020-04-23 02:07 | NUR ---
WE ARE STILL WAITING FOR INSURANCE TO LET US KNOW IF THE FOUND A HOSPITAL FOR HER TO BE TRANSFERRED
--- NOTE | 2020-04-23 03:48 | NUR ---
PT. STARTED TO HAVE THE PAIN AGAIN" THE MORPHINE IS WEARING OFF"
[2020-04-23 04:52] VITALS: BP 146/98
[2020-04-23 07:47] VITALS: BP 128/86
[2020-04-23 11:56] VITALS: BP 140/78
[2020-04-23 16:06] VITALS: BP 175/99
--- NOTE | 2020-04-23 17:10 | NUR ---
REPORTED BLOOD PRESSURE OF 175/99 TO DARIO NICHOLS DURING ROUNDING. PATIENT IS ASSYMPTOMATIC. PATIETNT ON NEW DIET AND REQUESTED FOR TUNA SANDWICH. PAIN MEDICATION ADMINSTERED REQUESTED AND ORDERED. REMAINS ON IVF AT 80ML/ HOUR. WILL CONTINUE TO MONITOR.
[2020-04-23 19:28] VITALS: BP 149/82
--- NOTE | 2020-04-23 20:00 | NUR ---
RECEIVED PT FROM ARM NURSE PT LAYING COMFORTABLE IN BED, RA, DENIES CP/SOB, DENIES PAIN, CALL LIGHT WITHIN REACH, BED IN LOWEST POSITION, WILL CONTINUE TO MONITOR PT
[2020-04-24 04:20] VITALS: BP 141/81
--- NOTE | 2020-04-24 06:23 | NUR ---
SLEPT WELL OVERNIGHT PRN PAIN MEDS GIVEN WITH GOOD EFFECT IVF MAINTAINED DENIES CP/SOB DENIES N/V ALL NEEDS MET WILL ENDORSE TO AM NURSE
[2020-04-24 06:46] LABS: BASOPHIL % 0.3 % (0-2); PLATELET COUNT 285 x10^3mcL (130-400)
[2020-04-24 07:18] LABS: ALKALINE PHOSPHATASE 70 U/L (46-116); ALT/SGPT 37 U/L (14-59); AST/SGOT 21 U/L (15-37); BILIRUBIN TOTAL 0.19 mg/dL (0.20-1.00); CALCIUM 9.1 mg/dL (8.5-10.1); CHLORIDE SERUM 108 mmol/L (98-107); CREATININE SERUM 1.3 mg/dL (0.6-1.0); GLUCOSE SERUM 102 mg/dL (74-106); MAGNESIUM 2.1 mg/dL (1.8-2.4); POTASSIUM SERUM 4.5 mmol/L (3.5-5.1); SODIUM SERUM 143 mmol/L (136-145); TOTAL PROTEIN, SERUM 6.5 g/dL (6.4-8.2)
[2020-04-24 07:20] LABS: ALBUMIN 3.2 g/dL (3.4-5.0)
[2020-04-24 07:46] LABS: RED CELL DISTRIBUTION WIDTH 16.6 % (11.5-14.5)
[2020-04-24 07:48] VITALS: BP 143/77
[2020-04-24 11:48] VITALS: BP 136/85
--- NOTE | 2020-04-24 15:16 | NUR ---
Notified Dr Hall Re: Urine culture Escherichia Coli Klebsiella Pneumoniae.
[2020-04-24 16:11] VITALS: BP 120/70
[2020-04-24] MEDS ORDERED: PER5 PO (16:32)
--- NOTE | 2020-04-24 18:18 | NUR ---
Pt alert and oriented with decision making capacity. Pt discharged home in stable condition. Pt called her family member for transportation but refused to stay in her room and wait for her ride. Pt left the unit in a W/C accompanied by HELPDESK TECHNICIAN to the lobby where she wanted to wait for her ride. Pt discharged with all belongings. Dischage instructions given to pt-Pt verbalized understanding and provided signature.
== END 2020-04-24 17:40 | disposition home or self-care (01) ==
LOC: ED 19:46 → MU 23:49
PROVIDERS: Emergency Medicine; Hospitalist; ADMIT Hospitalist; ATTEND Hospitalist
DX: R11.2 Nausea with vomiting, unspecified (principal); I25.10 Atherosclerotic heart disease of native coronary artery without angina pectoris; I10 Essential (primary) hypertension; E78.5 Hyperlipidemia, unspecified; F41.9 Anxiety disorder, unspecified; K29.70 Gastritis, unspecified, without bleeding; G89.29 Other chronic pain; M54.9 Dorsalgia, unspecified; K27.9 Peptic ulcer, site unspecified, unspecified as acute or chronic, without hemorrhage or perforation; Z90.49 Acquired absence of other specified parts of digestive tract
CPT/HCPCS: C9113; G0378; J0360; J2270; J2405; J2765; J7030; Q0162

== ENCOUNTER 2020-05-05 19:49 | Emergency (ER) | payer OTHER ==
[~2020-05-05] VITALS: Ht 162.6 cm; Wt 89.8 kg
[~2020-05-05 19:49] MED LIST changes: +PER5 PO
[2020-05-05 20:03] VITALS: Ht 162.6 cm; Wt 89.8 kg
[2020-05-05 20:45] LABS: BASOPHIL % 0.3 % (0-2); PLATELET COUNT 373 x10^3mcL (130-400)
[2020-05-05 20:46] LABS: RED CELL DISTRIBUTION WIDTH 16.7 % (11.5-14.5)
[2020-05-05 20:54] LABS: CALCIUM 9.8 mg/dL (8.5-10.1); CARBON DIOXIDE 26.1 mmol/L (21-32); CHLORIDE SERUM 101 mmol/L (98-107); CREATININE SERUM 1.6 mg/dL (0.6-1.0); GLUCOSE SERUM 158 mg/dL (74-106); POTASSIUM SERUM 3.6 mmol/L (3.5-5.1); SODIUM SERUM 137 mmol/L (136-145)
[2020-05-05 21:01] LABS: ALBUMIN 3.8 g/dL (3.4-5.0); ALKALINE PHOSPHATASE 96 U/L (46-116); ALT/SGPT 46 U/L (14-59); AST/SGOT 27 U/L (15-37); BILIRUBIN TOTAL 0.29 mg/dL (0.20-1.00); LIPASE 56 IU/L (73-393); TOTAL PROTEIN, SERUM 7.6 g/dL (6.4-8.2)
[2020-05-05 22:01] VITALS: BP 150/81
== END 2020-05-05 22:01 | disposition home or self-care (01) ==
LOC: ED 19:49
PROVIDERS: Student in an Organized Health Care Education/Training Program
DX: K57.90 Diverticulosis of intestine, part unspecified, without perforation or abscess without bleeding (principal); G47.00 Insomnia, unspecified; I10 Essential (primary) hypertension; Z90.89 Acquired absence of other organs; Z98.890 Other specified postprocedural states; Z91.018 Allergy to other foods
CPT/HCPCS: J2270

== ENCOUNTER 2020-05-08 18:25 | Emergency (ER) | payer OTHER ==
[~2020-05-08] VITALS: Ht 162.6 cm; Wt 74.8 kg
[2020-05-08 18:34] VITALS: Ht 162.6 cm; Wt 74.8 kg
[2020-05-08 22:11] LABS: BASOPHIL % 0.3 % (0-2); PLATELET COUNT 390 x10^3mcL (130-400); RED CELL DISTRIBUTION WIDTH 16.9 % (11.5-14.5)
[2020-05-08 22:18] LABS: CALCIUM 9.2 mg/dL (8.5-10.1); CARBON DIOXIDE 27.5 mmol/L (21-32); CHLORIDE SERUM 99 mmol/L (98-107); CREATININE SERUM 1.3 mg/dL (0.6-1.0); GLUCOSE SERUM 101 mg/dL (74-106); POTASSIUM SERUM 4.4 mmol/L (3.5-5.1); SODIUM SERUM 136 mmol/L (136-145)
[2020-05-08 22:23] LABS: ALBUMIN 3.9 g/dL (3.4-5.0); ALKALINE PHOSPHATASE 87 U/L (46-116); ALT/SGPT 32 U/L (14-59); AST/SGOT 17 U/L (15-37); BILIRUBIN TOTAL 0.3 mg/dL (0.20-1.00); LIPASE 46 IU/L (73-393); TOTAL PROTEIN, SERUM 7.4 g/dL (6.4-8.2)
[2020-05-08 22:33] LABS: CHOLESTEROL 263 mg/dL (<200); HDL CHOLESTEROL 66 mg/dL (40-60); TRIGLYCERIDES 364 mg/dL (<150)
[2020-05-09 00:55] VITALS: BP 159/92
== END 2020-05-09 00:55 | disposition home or self-care (01) ==
LOC: ED 18:25
PROVIDERS: Specialist
DX: G89.29 Other chronic pain (principal); R10.32 Left lower quadrant pain; I10 Essential (primary) hypertension; Z95.5 Presence of coronary angioplasty implant and graft; Z90.89 Acquired absence of other organs; Z87.19 Personal history of other diseases of the digestive system; Z20.828 Contact with and (suspected) exposure to other viral communicable diseases
CPT/HCPCS: 83880; J1885; J2270; J3490; Q0162

== ENCOUNTER 2020-05-10 15:58 | Observation (INO) | payer OTHER, SELFPAY ==
[~2020-05-10] VITALS: Ht 162.6 cm; Wt 87.5 kg
[2020-05-10 16:18] VITALS: Ht 162.6 cm; Wt 87.5 kg
--- NOTE | 2020-05-10 16:20 | NUR ---
EKG IN PROGRESS IN TRIAGE
[2020-05-10 18:15] LABS: BASOPHIL % 0.5 % (0-2); PLATELET COUNT 396 x10^3mcL (130-400); RED CELL DISTRIBUTION WIDTH 17.2 % (11.5-14.5)
[2020-05-10 18:25] LABS: CALCIUM 9.7 mg/dL (8.5-10.1); CHLORIDE SERUM 101 mmol/L (98-107); CREATININE SERUM 1.3 mg/dL (0.6-1.0); GLUCOSE SERUM 127 mg/dL (74-106); POTASSIUM SERUM 4.2 mmol/L (3.5-5.1); SODIUM SERUM 137 mmol/L (136-145)
[2020-05-10 18:31] LABS: ALBUMIN 3.9 g/dL (3.4-5.0); ALKALINE PHOSPHATASE 82 U/L (46-116); ALT/SGPT 26 U/L (14-59); AST/SGOT 20 U/L (15-37); BILIRUBIN TOTAL 0.3 mg/dL (0.20-1.00); LIPASE 52 IU/L (73-393); TOTAL PROTEIN, SERUM 7.6 g/dL (6.4-8.2)
[2020-05-10 18:34] LABS: CHOLESTEROL 246 mg/dL (<200); CHOLESTEROL/HDL RATIO 3.2; HDL CHOLESTEROL 76 mg/dL (40-60); TRIGLYCERIDES 236 mg/dL (<150)
--- NOTE | 2020-05-10 19:13 | NUR ---
REPORT GIVEN TO ANDROID IOS DEVELOPER MYLES RN TO ASSUME CARE OF PT
--- NOTE | 2020-05-10 20:05 | NUR ---
RECEIVED REPORT FROM ROYCE. PT IS LYING SUPINE ON THE GURNEY IN ROOM 8. PT IS R/O COVID AT THIS TIME AND NEEDS AN IV FOR CT SCAN. OPT IS A VERY YHARD STICK. PT IS C/O PAIN ON THE LOWER OLEFT QUAD OF HER ABD. WHEN ASK IF SHE HAD SEEN HER PMD ADVISED. SHE SAID SHE CALLED AND SPOKE WITH HIS NURSE AND WAS GIVEN AN APPT FOR THE May. THEREFORE, SHE CAME HERE TONIGHT BECAUSE OF HER ABD PAIN AGAIN 03/19.
--- NOTE | 2020-05-10 23:37 | NUR ---
REC'D PT FROM ED VIA RUY ACCOMPANIED BY RN. PT ADM WITH CC OF ABD PAIN. C/O 8/10 SHARP LLQ PAIN AND NAUSEA. ALSO REPORTS DAMON AND DIZZINESS. AAOX4, SPEECH CLEAR, FOLLOWS COMMANDS. TELE 8. DENIES CP OR PALPITATIONS. DENIES RESP DISTRESS OR SOB. BREATHING EVEN/UNLABORED ON RA. ABD SOFT/ROUND. C/O TENDERNESS UPON PALPATION. VOIDING FREELY. AMBULATORY. SKIN INTACT. IV TO R THUMB, SITE WNL. BP 176/106. ORIENTED TO DEVICES AND SURROUNDINGS. CALL LIGHT WTIHIN REACH, BED AT LOWEST POSITON. REPORT GIVEN TO JUDY MAYER.
[2020-05-10 23:42] VITALS: BP 176/106
--- NOTE | 2020-05-10 23:49 | NUR ---
PT MEDICATED W/ NORCO FOR C/O ABDL PAIN 03/19. ALSO GIVEN ZOFRAN 4 MG IV FOR NAUSEA. NO VOMITING NOTED AT THIS TIME.
--- NOTE | 2020-05-10 23:50 | NUR ---
INFORMED DR. MIRANDA REGARDING PT'S BP OF 176/106. ORDER GIVEN.
--- NOTE | 2020-05-11 00:50 | NUR ---
HYDRALAZINE 10 MG IV GIVEN FOR BP 176/106 . PT REASESSED FOR PAIN AND STATED NORCO DID NOT HELP. PT SAID SHE WAS GIVEN MORPHINE SULFATE 4 MG ON PREVIOUS ADMISSION WHICH HEPLED HER. INFORMED HER THAT WILL BE NOTIFIED.
[2020-05-11 01:20] VITALS: BP 152/62
--- NOTE | 2020-05-11 01:20 | NUR ---
BP KCGGRUAZO=757/62 HR=72. PT NOW MEDICATED W/ AMBIEN 5 MG PO FOR SLEEP REQUESTED.
--- NOTE | 2020-05-11 02:06 | NUR ---
DR. ROSEN WAS CALLED X2 AND INFORMED REGARDING PT'S ABDL PAIN NOT RELIEVED BY NORCO AND THAT PER PT MORPHINE HELPS WITH HER PAIN. ORDER WAS GIVEN AND PT WAS MEDICATED W/ MORPHINE 2 MG IV FOR ABDL PAIN OF 10/10.
[2020-05-11 05:06] VITALS: BP 151/96
--- NOTE | 2020-05-11 05:44 | NUR ---
PT REMAINS ASLEEP AT THIS TIME. SHE WAS MEDICATED FOR ABDL PAIN X2. PT WAS NOT RELIEVED OF PAIN W/ NORCO. PT'S PAIN RELIEVED W/ MORPHINE IV. PT WAS ALSO MEDICATED FOR NAUSEA BUT NO VOMITING NOTED. SHE AMBULATES W/ STEADY GAIT. IV TO RT THUMB INTACT AND PATENT. ALL NEEDS ATTENDED TO.
[2020-05-11 07:06] LABS: BASOPHIL % 0.1 % (0-2); PLATELET COUNT 332 x10^3mcL (130-400)
[2020-05-11 07:22] LABS: CALCIUM 8.5 mg/dL (8.5-10.1); CARBON DIOXIDE 27.1 mmol/L (21-32); CHLORIDE SERUM 104 mmol/L (98-107); CREATININE SERUM 1.2 mg/dL (0.6-1.0); GLUCOSE SERUM 106 mg/dL (74-106); POTASSIUM SERUM 3.9 mmol/L (3.5-5.1); RED CELL DISTRIBUTION WIDTH 16.6 % (11.5-14.5); SODIUM SERUM 140 mmol/L (136-145)
--- NOTE | 2020-05-11 07:27 | NUR ---
RECEIVED PATIENT FROM CUFF KNITTER NURSE. PT RESTING IN BED, TELE#8 NSR. DENIES PAIN, HEADACHE, N/V/D/C. LUNG SOUND CLEAR, BREATHING EVEN, UNLABORED, NO ACUTE RESP DISTRESS NOTED, AT ROOM AIR. SKIN CDI, PINK, WARM, NO EDEMA NOTED. LAST BM 05/09. VOIDS. IV ACCESS TO R THUMB 24G RUNNING NS 180ML/HR INFUSING WELL, SITE WNL, NO INFECTION/INFILTRATION NOTED. CALL LIGHT WITHIN REACH, BED AT LOWEST POSITION.
[2020-05-11 08:29] VITALS: BP 163/97
--- NOTE | 2020-05-11 08:43 | NUR ---
C/O L ABD PAIN RADIATES TO MIDLINE ABDOMEN. 02/17. MORPHINE IV GIVEN
[2020-05-11 09:30] VITALS: BP 141/68
--- NOTE | 2020-05-11 09:49 | NUR ---
L ABD PAIN IMPROVED AFTER MORPHINE IV FROM 02/17 TO 07/20. BP 141/68, MAP 80 AT THIS TIME. PT RESTING IN BED. NO ACUTE RESP DISTRESS NOTED. CALL LIGHT WITHIN REACH, BED AT LOWEST POSITION. WILL CONTINUE TO MONITOR
--- NOTE | 2020-05-11 11:15 | NUR ---
C/O L ABD PAIN 8.5, PT REQUESTS MORPHINE IV BUT IT WILL NOT DUE UNTIL 1230. NORCO PO GIVEN
[2020-05-11] MEDS ORDERED: ACETAMINOPHEN-H1 TA1 PO (11:45)
--- NOTE | 2020-05-11 12:13 | NUR ---
C/O L ABD PAIN /, PT STATES ABD PAIN DOESN'T IMPROVE AFTER TAKING NORCO PO, AND SHE REQUESTS MORPHINE IV. MORPHINE GIVEN
[2020-05-11 12:14] VITALS: BP 155/83
[2020-05-11 12:27] VITALS: BP 155/83
--- NOTE | 2020-05-11 14:33 | NUR ---
PT DISCHARES BACK HOME IN NO RESP DISTRESS. AWAKE, ALERT, AND ORIENTED. VS STABLE. DC INSTRUCTIONS REVIEWES WITH PATIENT. SHE VERBALIZED UNDERSTANDING. RX OF NORCO GIVEN TO PATIENT. HL REMOVED, SITE/CATH INTACT. NO C/O PAIN OR DISCOMFORT AT TIME OF DISCHARGE. PT BELONGING TAKEN HOME WITH PATIENT.
--- NOTE | 2020-05-11 14:42 | NUR ---
NURSING CO-SIGN THE DOCUMENTATION ENTERED BY THE RN SHUN HAS BEEN REVIEWED. REVIEWED/CO-SIGNED BY: Leonora Tay DOCUMENTATION DONE BY:KAYE REYNOLDS
== END 2020-05-11 14:32 | disposition home or self-care (01) ==
LOC: ED 15:58 → DU 21:32
PROVIDERS: Specialist; ADMIT Hospitalist; ATTEND Hospitalist
DX: R10.9 Unspecified abdominal pain (principal); N28.9 Disorder of kidney and ureter, unspecified; I10 Essential (primary) hypertension; E78.5 Hyperlipidemia, unspecified; E03.9 Hypothyroidism, unspecified; K58.9 Irritable bowel syndrome, unspecified; K57.90 Diverticulosis of intestine, part unspecified, without perforation or abscess without bleeding; G89.29 Other chronic pain
CPT/HCPCS: 83880; G0378; J0360; J1885; J2270; J2405; J3490; J7030

== ENCOUNTER 2020-05-14 06:44 | Emergency (ER) | payer OTHER ==
[~2020-05-14] VITALS: Ht 162.6 cm; Wt 85.3 kg
[~2020-05-14 06:44] MED LIST changes: +ACETAMINOPHEN-H1 TA1 PO
[2020-05-14 07:00] VITALS: Ht 162.6 cm; Wt 85.3 kg
[2020-05-14 08:58] LABS: BASOPHIL % 0.1 % (0-2)
[2020-05-14 09:00] LABS: CALCIUM 9.7 mg/dL (8.5-10.1); CARBON DIOXIDE 28.5 mmol/L (21-32); CHLORIDE SERUM 100 mmol/L (98-107); CREATININE SERUM 1.3 mg/dL (0.6-1.0); GLUCOSE SERUM 115 mg/dL (74-106); POTASSIUM SERUM 3.3 mmol/L (3.5-5.1); SODIUM SERUM 138 mmol/L (136-145)
[2020-05-14 09:06] LABS: PLATELET COUNT 410 x10^3mcL (130-400); RED CELL DISTRIBUTION WIDTH 16.7 % (11.5-14.5)
[2020-05-14 09:15] LABS: ALKALINE PHOSPHATASE 79 U/L (46-116); ALT/SGPT 22 U/L (14-59); AMYLASE 29 U/L (25-115); AST/SGOT 14 U/L (15-37); BILIRUBIN TOTAL 0.39 mg/dL (0.20-1.00); LIPASE 51 IU/L (73-393)
[2020-05-14 14:05] VITALS: BP 148/94
== END 2020-05-14 14:05 | disposition home or self-care (01) ==
LOC: ED 06:44
PROVIDERS: Emergency Medicine
DX: K59.00 Constipation, unspecified (principal); I10 Essential (primary) hypertension; Z91.018 Allergy to other foods
CPT/HCPCS: J0360; J1885; J2270; J3490

== ENCOUNTER 2020-05-23 13:02 | Emergency (ER) | payer OTHER ==
[~2020-05-23] VITALS: Ht 165.1 cm; Wt 68.9 kg
[2020-05-23 13:18] VITALS: BP 168/106; Ht 165.1 cm; Wt 68.9 kg
[2020-05-23 16:35] LABS: BASOPHIL % 0.8 % (0.2-1.3)
[2020-05-23 16:42] LABS: PLATELET COUNT 442 x10^3mcL (179-408); RED CELL DISTRIBUTION WIDTH 16.6 % (12.3-17.7)
[2020-05-23 16:54] LABS: ALBUMIN 4.5 g/dL (3.4-5.0); ALKALINE PHOSPHATASE 92 U/L (46-116); ALT/SGPT 36 U/L (14-59); AST/SGOT 39 U/L (15-37); BILIRUBIN TOTAL 0.6 mg/dL (0.20-1.00); CALCIUM 10.1 mg/dL (8.5-10.1); CARBON DIOXIDE 26.4 mmol/L (21-32); CHLORIDE SERUM 97 mmol/L (98-107); GLUCOSE SERUM 129 mg/dL (74-106); LIPASE 76 IU/L (73-393); POTASSIUM SERUM 3.4 mmol/L (3.5-5.1); SODIUM SERUM 137 mmol/L (136-145)
[2020-05-23 17:01] LABS: CREATININE SERUM 1.8 mg/dL (0.6-1.0); TOTAL PROTEIN, SERUM 8.4 g/dL (6.4-8.2)
== END 2020-05-23 18:15 | disposition left against medical advice (07) ==
LOC: ED 13:02
PROVIDERS: Emergency Medicine
DX: R10.84 Generalized abdominal pain (principal); G89.29 Other chronic pain; R07.89 Other chest pain; I10 Essential (primary) hypertension; Z91.018 Allergy to other foods
CPT/HCPCS: Q0162

== ENCOUNTER 2020-06-01 21:01 | Emergency (ER) | payer OTHER ==
[~2020-06-01] VITALS: Ht 162.6 cm; Wt 85.3 kg
[2020-06-01 21:40] VITALS: Ht 162.6 cm; Wt 85.3 kg
[2020-06-01 23:53] LABS: BASOPHIL % 0.9 % (0-2); PLATELET COUNT 329 x10^3mcL (130-400); RED CELL DISTRIBUTION WIDTH 16.8 % (11.5-14.5)
[2020-06-02 00:18] LABS: CALCIUM 9.6 mg/dL (8.5-10.1); CARBON DIOXIDE 28.3 mmol/L (21-32); CHLORIDE SERUM 101 mmol/L (98-107); CREATININE SERUM 1.9 mg/dL (0.6-1.0); GLUCOSE SERUM 114 mg/dL (74-106); POTASSIUM SERUM 3.8 mmol/L (3.5-5.1); SODIUM SERUM 139 mmol/L (136-145)
[2020-06-02 00:23] LABS: ALBUMIN 4.1 g/dL (3.4-5.0); ALKALINE PHOSPHATASE 90 U/L (46-116); ALT/SGPT 25 U/L (14-59); AST/SGOT 18 U/L (15-37); BILIRUBIN TOTAL 0.4 mg/dL (0.20-1.00); LIPASE 65 IU/L (73-393); TOTAL PROTEIN, SERUM 7.5 g/dL (6.4-8.2)
[2020-06-02 01:08] VITALS: BP 140/81
== END 2020-06-02 01:08 | disposition home or self-care (01) ==
LOC: ED 21:01
PROVIDERS: Emergency Medicine
DX: R10.32 Left lower quadrant pain (principal); R10.817 Generalized abdominal tenderness; G89.29 Other chronic pain; I10 Essential (primary) hypertension; Z98.890 Other specified postprocedural states; Z91.018 Allergy to other foods

== ENCOUNTER 2020-06-02 23:52 | Emergency (ER) | payer OTHER ==
[~2020-06-02] VITALS: Ht 170.2 cm; Wt 80.7 kg
[2020-06-03 00:04] VITALS: Ht 170.2 cm; Wt 80.7 kg
[2020-06-03 00:52] VITALS: BP 156/74
== END 2020-06-03 00:52 | disposition home or self-care (01) ==
LOC: ED 23:52
DX: G89.29 Other chronic pain (principal); R10.10 Upper abdominal pain, unspecified; I10 Essential (primary) hypertension; Z90.89 Acquired absence of other organs; Z88.8 Allergy status to other drugs, medicaments and biological substances

== ENCOUNTER 2020-08-05 11:07 | Observation (INO) | payer OTHER ==
[~2020-08-05] VITALS: Ht 162.6 cm; Wt 99.8 kg
[2020-08-05 11:13] VITALS: Ht 162.6 cm; Wt 99.8 kg
[2020-08-05 12:52] LABS: BASOPHIL % 0.5 % (0.2-1.3); PLATELET COUNT 313 x10^3mcL (179-408)
[2020-08-05 13:03] LABS: RED CELL DISTRIBUTION WIDTH 16.2 % (12.3-17.7)
[2020-08-05 13:12] LABS: CARBON DIOXIDE 28.8 mmol/L (21-32); CHLORIDE SERUM 103 mmol/L (98-107); CREATININE SERUM 1.1 mg/dL (0.6-1.0); GLUCOSE SERUM 87 mg/dL (74-106); POTASSIUM SERUM 4.1 mmol/L (3.5-5.1); SODIUM SERUM 138 mmol/L (136-145)
[2020-08-05 13:23] LABS: ALBUMIN 3.6 g/dL (3.4-5.0); ALKALINE PHOSPHATASE 73 U/L (46-116); ALT/SGPT 32 U/L (14-59); AST/SGOT 18 U/L (15-37); BILIRUBIN TOTAL 0.2 mg/dL (0.20-1.00); LIPASE 69 IU/L (73-393); TOTAL PROTEIN, SERUM 7.3 g/dL (6.4-8.2)
[2020-08-05 13:29] LABS: microscopic required? YES; urine erythrocyte TRACE (NEGATIVE)
[2020-08-06 01:28] VITALS: BP 172/129
[2020-08-06 05:49] VITALS: BP 179/99
[2020-08-06 07:41] LABS: BASOPHIL % 0.5 % (0.2-1.3); PLATELET COUNT 315 x10^3mcL (179-408)
[2020-08-06 07:46] LABS: CALCIUM 8.9 mg/dL (8.5-10.1); CARBON DIOXIDE 26.2 mmol/L (21-32); CHLORIDE SERUM 103 mmol/L (98-107); CREATININE SERUM 1.1 mg/dL (0.6-1.0); GLUCOSE SERUM 113 mg/dL (74-106); MAGNESIUM 2.4 mg/dL (1.8-2.4); POTASSIUM SERUM 3.7 mmol/L (3.5-5.1); SODIUM SERUM 137 mmol/L (136-145)
[2020-08-06 08:21] LABS: RED CELL DISTRIBUTION WIDTH 16.1 % (12.3-17.7)
[2020-08-06 09:39] VITALS: BP 173/73
[2020-08-06 12:35] VITALS: BP 172/80
[2020-08-06 16:05] VITALS: BP 136/75
[2020-08-06 19:53] VITALS: BP 169/78
[2020-08-07] VITALS (7 sets, daily range): BP systolic 130–189; BP diastolic 64–99
[2020-08-07 07:19] LABS: BASOPHIL % 0.7 % (0.2-1.3); PLATELET COUNT 329 x10^3mcL (179-408)
[2020-08-07 07:33] LABS: CALCIUM 9.1 mg/dL (8.5-10.1); CARBON DIOXIDE 24.5 mmol/L (21-32); CHLORIDE SERUM 103 mmol/L (98-107); CREATININE SERUM 1.2 mg/dL (0.6-1.0); GLUCOSE SERUM 118 mg/dL (74-106); MAGNESIUM 2.6 mg/dL (1.8-2.4); POTASSIUM SERUM 4.1 mmol/L (3.5-5.1); SODIUM SERUM 138 mmol/L (136-145)
[2020-08-07 07:38] LABS: RED CELL DISTRIBUTION WIDTH 16.2 % (12.3-17.7)
[2020-08-08] VITALS (7 sets, daily range): BP systolic 152–209; BP diastolic 79–104
[2020-08-08 07:18] LABS: BASOPHIL % 0.4 % (0.2-1.3); PLATELET COUNT 361 x10^3mcL (179-408)
[2020-08-08 07:21] LABS: CALCIUM 9.6 mg/dL (8.5-10.1); CARBON DIOXIDE 24.9 mmol/L (21-32); CHLORIDE SERUM 102 mmol/L (98-107); CREATININE SERUM 1.2 mg/dL (0.6-1.0); GLUCOSE SERUM 114 mg/dL (74-106); MAGNESIUM 2.7 mg/dL (1.8-2.4); SODIUM SERUM 137 mmol/L (136-145)
[2020-08-08 07:33] LABS: RED CELL DISTRIBUTION WIDTH 16.3 % (12.3-17.7)
[2020-08-09 05:40] VITALS: BP 159/83
[2020-08-09 07:01] LABS: CALCIUM 8.9 mg/dL (8.5-10.1); CARBON DIOXIDE 25.4 mmol/L (21-32); CHLORIDE SERUM 99 mmol/L (98-107); CREATININE SERUM 1.1 mg/dL (0.6-1.0); GLUCOSE SERUM 120 mg/dL (74-106); MAGNESIUM 2.4 mg/dL (1.8-2.4); POTASSIUM SERUM 3.7 mmol/L (3.5-5.1); SODIUM SERUM 134 mmol/L (136-145)
[2020-08-09 07:53] VITALS: BP 164/94
[2020-08-09 08:01] LABS: BASOPHIL % 0.6 % (0.2-1.3); PLATELET COUNT 383 x10^3mcL (179-408)
[2020-08-09 08:03] LABS: RED CELL DISTRIBUTION WIDTH 16.2 % (12.3-17.7)
[2020-08-09 10:30] VITALS: BP 154/75
[2020-08-09] MEDS ORDERED: NOR10 PO (11:20)
[2020-08-09 11:55] VITALS: BP 155/91
[2020-08-09 13:15] VITALS: BP 155/91
== END 2020-08-09 14:13 | disposition home or self-care (01) ==
LOC: ED 11:07 → MU 21:27
PROVIDERS: Emergency Medicine; ADMIT Hospitalist; ATTEND Hospitalist
DX: R10.9 Unspecified abdominal pain (principal); F11.20 Opioid dependence, uncomplicated; E86.0 Dehydration; Z20.822 Contact with and (suspected) exposure to COVID-19; M19.90 Unspecified osteoarthritis, unspecified site; I10 Essential (primary) hypertension
CPT/HCPCS: G0378; J3490; J7030; U0003